=== PATIENT | female | born 1945 | race Caucasian/White ===

== ENCOUNTER → 2017-02-12 | Outpatient (CLI) | payer MEDICARE, BC ==
[2017-02-12 08:41] LABS: CH 32.7; CHCM 33.7; HCT 39.2 % (34.0-46.0); HDW 2.56; HGB 13.2 gm/dL (11.4-16.0); MCHC 33.8 g/dL (31.0-37.0); MCV 97.6 fL (80.0-100.0); Mean Platelet Volume 7.3; RBC 4.01 m/uL (3.80-5.40); RDW 14.1 % (11.5-15.5)
[2017-02-12 09:37] LABS: ALT 57 U/L (9-52); AST 50 U/L (14-36); Alkaline Phosphatase 54 U/L (38-126); Anion Gap 6 mmol/L; Blood Urea Nitrogen 22 mg/dL (7-17); Calcium 9.6 mg/dL (8.4-10.2); Carbon Dioxide 30 mmol/L (22-30); Chloride 104 mmol/L (98-107); Cholesterol 177 mg/dL (<200); Glucose 92 mg/dL (74-99); HDL Cholesterol 48 mg/dL (40-60); Non-African American GFR(MDRD) 60 (>60 ml/min/1.73 sqM); Sodium 140 mmol/L (137-145); Total Bilirubin 0.6 mg/dL (0.2-1.3); Total Protein 6.4 g/dL (6.3-8.2); Triglycerides 75 mg/dL (<150)
== END | disposition home or self-care (01) ==
LOC: LABWHC1 08:26
PROVIDERS: ATTEND Internal Medicine
DX: E87.8 Other disorders of electrolyte and fluid balance, not elsewhere classified (principal); E78.1 Pure hyperglyceridemia; R53.83 Other fatigue
CPT/HCPCS: 36415; 80053; 80061; 84443; 85027

== ENCOUNTER → 2017-07-24 | Outpatient (CLI) | payer MEDICARE, BC ==
--- NOTE | 2017-07-25 13:53 | MM ---
Reason for exam: screening (asymptomatic). Last mammogram was performed 1 year and 4 months ago. History: Patient is postmenopausal. Took estrogen for 1 year. Physical Findings: A clinical breast exam by your physician is recommended on an annual basis and results should be correlated with mammographic findings. MG 3D Screening Mammo W/Cad Bilateral CC and MLO view(s) were taken. Prior study comparison: March 15, 2016, bilateral MG 3d screening mammo w/cad. January 13, 2015, bilateral MG screening mammo w CAD. The breast tissue is heterogeneously dense. This may lower the sensitivity of mammography. No suspicious abnormality. No significant changes when compared with prior studies. ASSESSMENT: Negative, BI-RAD 1 RECOMMENDATION: Routine screening mammogram of both breasts in 1 year.
== END | disposition home or self-care (01) ==
LOC: RADMAMWWP 14:53
PROVIDERS: ATTEND Internal Medicine
DX: Z12.31 Encounter for screening mammogram for malignant neoplasm of breast (principal)
CPT/HCPCS: 77063; G0202

== ENCOUNTER → 2017-11-05 | Outpatient (CLI) | payer MEDICARE, BC ==
[2017-11-05 15:11] LABS: HCT 43.7 % (34.0-46.0); HGB 14.5 gm/dL (11.4-16.0); MCH 31.5 pg (25.0-35.0); MCHC 33.1 g/dL (31.0-37.0); MCV 95.3 fL (80.0-100.0); Mean Platelet Volume 7.2; Platelet Count 262 k/uL (150-450); RBC 4.59 m/uL (3.80-5.40); RDW 13.7 % (11.5-15.5); WBC 10.4 k/uL (3.8-10.6)
[2017-11-05 15:41] LABS: Potassium 4.3 mmol/L (3.5-5.1)
== END | disposition home or self-care (01) ==
LOC: LABPAT 14:45
PROVIDERS: ATTEND Internal Medicine Interventional Cardiology
DX: Z01.812 Encounter for preprocedural laboratory examination (principal); I25.10 Atherosclerotic heart disease of native coronary artery without angina pectoris
CPT/HCPCS: 36415; 80051; 82565; 84520; 85027

== ENCOUNTER → 2017-11-13 | Day surgery (SDC) | payer MEDICARE, BC ==
[2017-11-08 16:17] VITALS: BMI 32.5
[~2017-11-13] MED LIST: ALBUTEROL NEBULIZED 2.5 MG/3 ML INHALATION PRN; ALPRAZolam 0.25 MG TAB PO PRN; ALPRAZolam 0.5 MG TAB PO PRN; ASPIRIN 325 MG TAB PO STA; ASPIRIN 81 MG PO SCH; Acetaminophen-Codeine 300-30mg TAB PO PRN; CALCIUM CARBONATE PO SCH; HEPARIN SODIUM 1,000 UN/ML (10ML VL) ONE; IODIXANOL 320 MG/ML 100 ML INTRAARTER ONE; LEVOTHYROXINE 100 MCG TAB PO SCH; LIDOCAINE 2% INJ 20 MG/ML (20 ML MDV) ONE; LIDOCAINE 2% INJ 20 MG/ML SQ ONE; LOSARTAN-HCTZ 50-12.5 MG 1 EACH TAB PO SCH; METOPROLOL TARTRATE 25 MG TAB PO SCH; MIDAZOLAM 2 MG/2 ML VIAL IVP ONE; MIDAZOLAM 2 MG/2 ML VIAL ONE; NITROGLYCERIN 1000MCG/10ML SYRINGE INTRACORON ONE; NITROGLYCERIN SL TABS 0.4 MG TAB SUBLINGUAL PRN; NON-FORMULARY DRUG (Omeprazole [Prilosec] 40 MG) PO SCH; NON-FORMULARY DRUG (Tolterodine Tartrate [Detrol La] 4 MG) PO SCH; RX INFO: IV CONTRAST WAS GIVEN 1 EACH MISC MISCELLANE PRN; SODIUM CHLORIDE 0.9% 1,000 ML IV ONE; SODIUM CHLORIDE 0.9% 1,000 ML IV SCH; SODIUM CHLORIDE 0.9% 1,000 ML in EMPTY BAG 1 BAG IV ONE; SYMBICORT 80-4.5 MCG INHALER INHALATION PRN; VERAPAMIL 2.5 MG/ML 2 ML AMP ONE; VERAPAMIL SYRINGE (5 MG/10 ML) INTRAARTER ONE; VITAMIN D3 PO SCH; fentaNYL (PF) 50 MCG/ML 2 ML AMP IVP ONE; fentaNYL (PF) 50 MCG/ML 2 ML AMP ONE
[2017-11-13 09:15] VITALS: RESP 18
--- NOTE | 2017-11-13 14:34 | CC ---
CARDIAC CATHETERIZATION REPORT Mrs. Zuleta is a 72-year-old female with known history of coronary artery disease, status post stenting of the first obtuse marginal branch in 2010, history of hypertension, hyperlipidemia, who has been complaining of dyspnea on exertion and chest discomfort. In view of that, recommendation made regarding cardiac catheterization, the procedures, risks and complication were discussed with the patient who is in full understanding and agreement. PROCEDURE: Patient was brought to the [facility] in a fasting semi-sedated state after receiving fentanyl and Benadryl. She was draped and prepped in conventional fashion after obtaining moderate conscious semi-sedated state using Xylocaine anesthesia and Seldinger technique, a 6-Hungarian sheath was introduced in the right radial artery. Selective right and left angiography performed using a 6-Hungarian Adrian catheter. Prior to that, attempt to cannulate the coronaries with the 3.5 bend 5-Hungarian Marce catheter were unsuccessful. The right Marce catheter was used to cross the aortic valve and pressures were calculated. After obtaining images of the coronary arteries, catheter and sheaths were removed. Hemostasis was obtained with deployment of a TR band. There was no immediate complication. Patient is returned to her room in stable condition. Of note, the patient received 3500 units of intravenous heparin as well as intra-arterial verapamil. FINDINGS: 1. LEFT MAIN: This is a large-sized vessel bifurcating into left circumflex, left anterior descending artery, left main coronary artery is without any significant obstructive disease. 2. LEFT ANTERIOR DESCENDING ARTERY: This is a large-sized vessel, reaching toward the apex, tapers down distal third, giving rise to 3 obtuse marginal branches. The first one is a small in caliber, has about 70% to 80% stenosis proximally. The left anterior descending artery beyond the first diagonal branch has mild intimal disease of 20% to 30%. The rest of the vessel has no high-grade stenosis. 3. LEFT CIRCUMFLEX: This is a nondominant vessel, giving rise to 2 obtuse marginal branches. The first one is very proximal, it is the stented branch. The stent is patent. Beyond the stent, there is a tubular lesion of about 50%. The rest of the vessel has no high-grade stenosis. The second obtuse marginal branch is small caliber, in the mid segment of that branch, prior to another bifurcation,. there is a 99% stenosis. The vessel beyond that is quite small in caliber. 4. RIGHT CORONARY ARTERY: This is a large dominant vessel, bifurcating into PDA and posterolateral segment branches. The right coronary artery has mild intimal disease of 10% to 20% without any evidence of high-grade stenosis. 5. LEFT VENTRICULOGRAM: Left ventriculogram was not performed. 6. HEMODYNAMICS: There was no gradient across the aortic valve. The left ventricle end-diastolic pressure was 12 mmHg. CONCLUSION: 1. Significant disease in the small first diagonal branch and second obtuse marginal branch. 2. Mild to moderate disease in the proximal left anterior descending artery, first obtuse marginal branch and the right coronary artery. RECOMMENDATION: In view of finding anatomy, I have recommended to continue medical therapy with the aggressive risk factor modifications being initiated. Those findings and recommendation were discussed with the patient and her family who are in full understanding and agreement. Duration of the procedure is 24 minutes. MMODL / IJN: [id number] /
--- NOTE | 2017-11-13 14:34 | LTR ---
DATE OF SERVICE: 11/13/2016 RE: Nisreen Zuleta Dear Dr. Nettles: I had the pleasure to perform cardiac catheterization on Mrs. Zuleta at [facility] on November 13, 2017 and a full copy of the procedure note will be forwarded to you. In brief, she he was found to have no evidence of restenosis in the prior stented segment of the first obtuse marginal branch, but she had significant disease in a small distal second obtuse marginal branch and a first small diagonal branch. In view of the anatomy, I have recommended to continue medical therapy and depending on her progress, further recommendation will be made. Thank you again for allowing me to participate in this patient's care. Please feel free to call for any questions. Sincerely yours, MD ANAYA Patino / SPEEDY: [id number] /
[2017-11-13 16:38] VITALS: TEMP 98.2
[2017-11-13 17:29] VITALS: BP 123/68; PULSE 62
== END | disposition home or self-care (01) ==
LOC: CATHCVL 08:35
PROVIDERS: ATTEND Internal Medicine Interventional Cardiology
DX: I25.110 Atherosclerotic heart disease of native coronary artery with unstable angina pectoris (principal); I10 Essential (primary) hypertension; Z95.5 Presence of coronary angioplasty implant and graft; E78.2 Mixed hyperlipidemia; I71.4 Abdominal aortic aneurysm, without rupture; I73.9 Peripheral vascular disease, unspecified; Z79.82 Long term (current) use of aspirin; Z79.1 Long term (current) use of non-steroidal anti-inflammatories (NSAID); Z79.51 Long term (current) use of inhaled steroids; Z79.899 Other long term (current) drug therapy
CPT/HCPCS: 93458; C1894; C1769 ×2; J2001; J2250; Q9967; J3010; J1644

== ENCOUNTER → 2018-03-10 | Outpatient (CLI) | payer MEDICARE, BC ==
[2018-03-10 10:46] LABS: Basophils % (A) 1 %; Eosinophils # (A) 0.1 k/uL (0-0.7); Eosinophils % (A) 2 %; HGB 13.7 gm/dL (11.4-16.0); Lymphocytes # (A) 1.9 k/uL (1.0-4.8); Lymphocytes % (A) 36 %; MCH 30.8 pg (25.0-35.0); MCHC 32.5 g/dL (31.0-37.0); MCV 94.6 fL (80.0-100.0); Mean Platelet Volume 7.2; Monocytes # (A) 0.3 k/uL (0-1.0); Monocytes % (A) 6 %; Neutrophils # (A) 2.8 k/uL (1.3-7.7); Neutrophils % (A) 53 %; Platelet Count 194 k/uL (150-450); RBC 4.43 m/uL (3.80-5.40); RDW 14.8 % (11.5-15.5); WBC 5.3 k/uL (3.8-10.6)
[2018-03-10 11:08] LABS: Albumin 3.9 g/dL (3.5-5.0); Calcium 9.8 mg/dL (8.4-10.2); Potassium 4.1 mmol/L (3.5-5.1); Total Bilirubin 0.5 mg/dL (0.2-1.3); Total Protein 6.3 g/dL (6.3-8.2)
--- NOTE | 2018-03-10 13:26 | CT ---
CT angiogram of the abdomen HISTORY: Abdominal aortic aneurysm Helical acquisition through the abdomen following 100 cc Isovue-370 IV. Three-dimensional reconstruct ions performed on an alternate workstation. Correlation prior exam 10/27/2012 There is an infrarenal abdominal aortic aneurysm measuring 5.7 cm which is increased from previous ex am when it measured 3.1 cm. There is some luminal plaque. There is no involvement of the common iliac arteries. The aneurysm measures approximately 1.5 cm, suspect there is a single renal artery on the right, acce ssory, inferior renal artery is noted on the left, 2 renal arteries on the left. Some cortical thinning associated with the left kidney is noted. Patient is post cholecystectomy. The celiac axis, superior mesenteric artery, inferior mesenteric artery are patent. Common iliac, manufacturing engineering intern al and external iliac arteries are patent. Calcifications associated with the liver and spleen may be due to old granulomatous disease. Facet ar thropathy, degenerative disc changes are noted in the visualized spine. IMPRESSION: Infrarenal abdominal aortic aneurysm as described.
== END | disposition home or self-care (01) ==
LOC: RADCTMAIN 09:54
PROVIDERS: ATTEND Thoracic Surgery (Cardiothoracic Vascular Surgery)
DX: I71.4 Abdominal aortic aneurysm, without rupture (principal)
CPT/HCPCS: 80061; 80053; 82565; 84443; 84520; 85025; 74175; 36415; Q9967

== ENCOUNTER → 2018-04-22 | Outpatient (CLI) | payer MEDICARE, BC ==
[2018-04-22 14:29] LABS: Basophils % (A) 1 %; Eosinophils % (A) 1 %; HCT 40.7 % (34.0-46.0); HGB 12.9 gm/dL (11.4-16.0); Lymphocytes # (A) 1.5 k/uL (1.0-4.8); Lymphocytes % (A) 22 %; MCH 29.8 pg (25.0-35.0); MCHC 31.7 g/dL (31.0-37.0); MCV 93.8 fL (80.0-100.0); Mean Platelet Volume 7.4; Monocytes # (A) 0.4 k/uL (0-1.0); Monocytes % (A) 5 %; Neutrophils # (A) 4.9 k/uL (1.3-7.7); Neutrophils % (A) 71 %; Platelet Count 172 k/uL (150-450); RBC 4.34 m/uL (3.80-5.40); RDW 14.4 % (11.5-15.5); WBC 6.9 k/uL (3.8-10.6)
[2018-04-22 14:35] LABS: Appearance,Urine Clear (Clear); Bilirubin,Urine Negative (Negative); Blood,Urine Negative (Negative); Color,Urine Yellow; Glucose,Urine (UA) Negative (Negative); Ketones,Urine Negative (Negative); Leukocyte Esterase,Urine Negative (Negative); Nitrite,Urine Negative (Negative); PH, Urine 5.5 (5.0-8.0); Protein,Urine Negative (Negative); Specific Gravity,Urine 1.009 (1.001-1.035); Urobilinogen,Urine <2.0 mg/dL (<2.0)
[2018-04-22 14:44] LABS: Potassium 4.3 mmol/L (3.5-5.1)
== END | disposition home or self-care (01) ==
LOC: LABWHC1 13:23
PROVIDERS: ATTEND Surgery
DX: Z01.812 Encounter for preprocedural laboratory examination (principal); I71.4 Abdominal aortic aneurysm, without rupture
CPT/HCPCS: 36415; 80051; 81003; 82565; 84520; 85025

== ENCOUNTER 2018-04-29 07:27 | Inpatient (IN) | payer MEDICARE, BC ==
[2018-04-23 11:20] VITALS: BMI 32.8
[~2018-04-29 07:27] MED LIST changes: -ALBUTEROL NEBULIZED 2.5 MG/3 ML INHALATION PRN; -ALPRAZolam 0.25 MG TAB PO PRN; -ALPRAZolam 0.5 MG TAB PO PRN; -ASPIRIN 325 MG TAB PO STA; -ASPIRIN 81 MG PO SCH; -Acetaminophen-Codeine 300-30mg TAB PO PRN; -CALCIUM CARBONATE PO SCH; +DEXAMETHASONE SOD PHOSPHATE 10 MG/ML 1 ML VIAL IV ONE; -HEPARIN SODIUM 1,000 UN/ML (10ML VL) ONE; -IODIXANOL 320 MG/ML 100 ML INTRAARTER ONE; +LACTATED RINGERS 1,000 ML IV SCH; -LEVOTHYROXINE 100 MCG TAB PO SCH; +LIDOCAINE 1% 20 ML VIAL (10MG/ML) FOR IV START INTRADERMA PRN; -LIDOCAINE 2% INJ 20 MG/ML (20 ML MDV) ONE; -LIDOCAINE 2% INJ 20 MG/ML SQ ONE; -LOSARTAN-HCTZ 50-12.5 MG 1 EACH TAB PO SCH; -METOPROLOL TARTRATE 25 MG TAB PO SCH; +MIDAZOLAM 2 MG/2 ML VIAL IV PRN; -MIDAZOLAM 2 MG/2 ML VIAL IVP ONE; -MIDAZOLAM 2 MG/2 ML VIAL ONE; -NITROGLYCERIN 1000MCG/10ML SYRINGE INTRACORON ONE; -NITROGLYCERIN SL TABS 0.4 MG TAB SUBLINGUAL PRN; -NON-FORMULARY DRUG (Omeprazole [Prilosec] 40 MG) PO SCH; -NON-FORMULARY DRUG (Tolterodine Tartrate [Detrol La] 4 MG) PO SCH; +ONDANSETRON 4 MG/2 ML VIAL IVP ONE; -RX INFO: IV CONTRAST WAS GIVEN 1 EACH MISC MISCELLANE PRN; -SODIUM CHLORIDE 0.9% 1,000 ML IV ONE; -SODIUM CHLORIDE 0.9% 1,000 ML IV SCH; -SYMBICORT 80-4.5 MCG INHALER INHALATION PRN; -VERAPAMIL 2.5 MG/ML 2 ML AMP ONE; -VERAPAMIL SYRINGE (5 MG/10 ML) INTRAARTER ONE; -VITAMIN D3 PO SCH; +ceFAZolin IN SWFI 2 GM/20 ML SYRINGE IVP ONE; +fentaNYL (PF) 50 MCG/ML 2 ML AMP IV PRN; -fentaNYL (PF) 50 MCG/ML 2 ML AMP IVP ONE; -fentaNYL (PF) 50 MCG/ML 2 ML AMP ONE
--- NOTE | 2018-04-29 08:54 | P.GSHP ---
History of Present Illness H&P Date: 04/29/18 Chief Complaint: AAA 72-year-old female with history of abdominal aortic aneurysm presented to the office secondary to enlarged infrarenal aneurysm measuring approximate 5.[address] angiogram which demonstrated long neck and suitable aneurysm for endovascular aortic repair. She presents today for endovascular aortic repair. She denies any fevers, chills, chest pain or shortness of breath. Past Medical History Past Medical History: Asthma, Chest Pain / Angina, Eye Disorder, GERD/Reflux, Hyperlipidemia, Hypertension, Thyroid Disorder Additional Past Medical History / Comment(s): current tx for resp congestion/ cough,Hx CHEST TIGHTNESS,GLAUCOMA History of Any Multi-Drug Resistant Organisms: None Reported Past Surgical History: Cholecystectomy, Heart Catheterization With Stent Additional Past Surgical History / Comment(s): STENTX1 Past Anesthesia/Blood Transfusion Reactions: No Reported Reaction, Motion Sickness Additional Past Anesthesia/Blood Transfusion Reaction / Comment(s): no problems with prior blood transfusion Date of Last Stent Placement:: 2010 Smoking Status: Never smoker - Past Family History Mother Family Medical History: Cancer Medications and Allergies Home Medications Medication Instructions Recorded Confirmed Type Aspirin 81 mg PO HS 09/08/14 04/29/18 History Calcium Carbonate/Vitamin D3 1 tab PO DAILY 09/08/14 04/29/18 History [Calcium 600 + Vit D Tablet] Levothyroxine Sodium [Synthroid] 100 mcg PO DAILY 09/08/14 04/23/18 History Omeprazole [PriLOSEC] 40 mg PO DAILY 09/08/14 04/29/18 History Tolterodine Tartrate [Detrol LA] 4 mg PO DAILY 09/08/14 04/29/18 History Albuterol Nebulized [Ventolin 2.5 mg INHALATION Q6H PRN 11/08/17 04/29/18 History Nebulized] Budesonide/Formoterol Fumarate 1 puff INHALATION TID PRN 11/08/17 04/29/18 History [Symbicort 80-4.5 Mcg Inhaler] Losartan-Hctz 50-12.5 mg [Hyzaar 1 each PO DAILY 11/08/17 04/23/18 History 50-12.5] Metoprolol Tartrate [Lopressor] 25 mg PO DAILY 11/08/17 04/23/18 History Ibuprofen [Motrin] 200 mg PO Q6HR PRN 04/23/18 04/29/18 History Promethaz-Cod 6.25-10 mg/5 ml 5 ml PO Q6HR PRN 04/23/18 04/29/18 History [Phenergan with Codeine] Allergies Allergy/AdvReac Type Severity Reaction Status Date / Time Ioukgcp-Yyi-Jcf Reductase AdvReac MUSCLE PAIN Verified 04/23/18 10:44 Inhibitor Surgical - Exam Vital Signs Temp Pulse Resp BP Pulse Ox 98.1 F 57 L 20 150/75 97 04/29/18 08:14 04/29/18 08:14 04/29/18 08:14 04/29/18 08:14 04/29/18 08:14 Palpable DP and PT pulses bilaterally - General well developed, well nourished - Eyes PERRL, normal ocular movement - ENT normal pinna, normal nares, normal mucosa - Neck no masses, trachea midline - Respiratory normal expansion, normal respiratory effort - Cardiovascular Rhythm: regular - Abdomen Abdomen: soft, non tender - Integumentary no rash - Psychiatric oriented to time, oriented to person, oriented to place Assessment and Plan (1) AAA (abdominal aortic aneurysm) without rupture Current Visit: Yes Status: Acute Priority: High Code(s): I71.4 - ABDOMINAL AORTIC ANEURYSM, WITHOUT RUPTURE SNOMED Code(s): 65418367 Plan: EVAR today
[2018-04-29] MEDS ORDERED: SODIUM CHLORIDE 0.9% 500 ML IV ONE (09:10)
[2018-04-29] MEDS ORDERED: LACTATED RINGERS IV ONE (09:10)
[2018-04-29] MEDS ORDERED: LIDOCAINE 1% INJ 10MG/ML (20 ML MDV) SQ ONE (09:40)
[2018-04-29] MEDS ORDERED: NITROGLYCERIN-D5W PMX 50 MG in DEXTROSE/WATER 1 250ML.BAG IV SCH (09:45)
[2018-04-29] MEDS ORDERED: PROMETHAZ-COD 6.25-10 MG/5 ML 5 ML CUP PO PRN (10:57)
[2018-04-29] MEDS ORDERED: SYMBICORT 80-4.5 MCG INHALER INHALATION PRN (10:57)
[2018-04-29] MEDS ORDERED: IBUPROFEN 200 MG TAB PO PRN (10:57)
[2018-04-29] MEDS ORDERED: LACTATED RINGERS 1,000 ML IV ONE ×2 (11:10)
[2018-04-29] MEDS ORDERED: IOPAMIDOL-250 100ML BTL INTRAARTER ONE (11:13)
--- NOTE | 2018-04-29 11:40 | P.OP ---
Date of Procedure: 04/29/18 Preoperative Diagnosis: Infrarenal AAA Postoperative Diagnosis: Infrarenal AAA Procedure(s) Performed: Endovascular aortic repair with ovation iX Bilateral femoral artery access under ultrasound guidance and Perclose closure device Implants: Ovation iX 23 mm main body Ovation 12 x 120 mm contralateral limb Ovation 12 x 120 mm ipsilateral limb Anesthesia: FELICITY Surgeon: Sebas Mar Estimated Blood Loss (ml): 30 IV fluids (ml): 500 Pathology: none sent Condition: stable Disposition: PACU Indications for Procedure: 72-year-old female who presented to the office with increasing asymptomatic infrarenal abdominal aortic aneurysm measuring 5.[address] angiogram which demonstrated suitable aneurysm for endovascular aortic repair. She denies any fevers, chills, chest pain or shortness of breath. Operative Findings: Large infrarenal abdominal aortic aneurysm measuring approximately 5.7 cm Description of Procedure: After written informed consent was obtained the patient all risks benefits and complications were described patient is brought to the [facility] and laid in a supine position. The area of the groins were prepped and draped in usual sterile fashion after appropriate anesthetic was performed per the anesthesiologist. Timeout was performed in normal fashion antibiotics were administered prior to any incisions. Utilizing ultrasound bilateral common femoral arteries were visualized and shown to be patent with minimal plaque. Under ultrasound guidance the femoral arteries were accessed and in normal fashion 2 Perclose closure devices were placed in both femoral arteries. Once devices were placed and 8-Sierra Leonean sheath was placed. After placement of the 8- [place] sheath the patient was administered heparin and followed with serial a CTs for appropriate heparinization. 035 Glidewire was then placed up the right common femoral artery sheath followed by an angled glide catheter and exchanged for a stiff Lunderquist wire. 035 Glidewire was then placed in the left femoral sheath and a pigtail catheter was guided over into the L2 vertebrae space. Due to the computed tomography scan and size of the aorta a 23 mm main body device was chosen to be deployed. The 8-Sierra Leonean sheath on the right femoral artery was removed and the main body was guided over the stiff Lunderquist wire to approximately the L1-L2 vertebra level. Appropriate angles were then obtained with the fluoroscopy and an aortogram was obtained visualizing the renal arteries. First segment of the graft was then deployed by turning the first released knob quarter turn counterclockwise and steadily pulled knob attached to the wire. Once the mid crown was deployed the parallax was removed with moving the fluoroscopy. Another angiogram was obtained demonstrating good visualization of the landing zone. Pigtail catheter was then withdrawn and the main body suprarenal fixation was deployed in normal fashion. Once deployed the polymer was then placed under direct visualization of fluoroscopy. Lunderquist wire was then withdrawn within the limb of the graft to allow for good molding of the intra-aorta. Attention was then placed to gate cannulation of the contralateral limb. Utilizing an 035 Glidewire and angled glide catheter the contralateral limb was accessed and the angled glide catheter was removed and replaced with pigtail catheter to verify cannulation. The pigtail catheter spun easily without any issue and therefore confirmed cannulation. A retrograde angiogram was then obtained and measurements were obtained of the contralateral limb which measured to be 12 x 120 mm. A 12 x 120 mm contralateral limb was then placed in normal fashion after removal of the pigtail catheter after a stiff Amplatz wire was placed. 8-Sierra Leonean sheath was removed and device was placed and deployed in normal fashion. Once completed a 10 x 40 mm balloon was placed at the overlap of the contralateral limb. Attention was then placed to the full deployment of the main body after 14 minutes were allowed to pass for polymer. Nosecone was retracted after full deployment of the graft was performed by rotating the graft. The stiff Lunderquist wire was readvanced. Once the deployment system was removed attention was then placed to the aortic rings. Utilizing a Coda balloon balloon angioplasty was performed at the infrarenal aortic polymer rings to further mold the rings into the aorta. Coda balloon was removed and replaced with a pigtail catheter retrograde angiogram was then obtained to measure the internal iliac artery. A 12 x 120 mm ipsilateral limb was then chosen to be deployed and was deployed in normal fashion after removal of the existing sheath. Once completed the deployment device was removed and a 10 x 40 mm balloon was placed and balloon angioplasties were performed bilaterally at all the areas of overlap. Once completed wounds were removed and a pigtail catheter was placed for final angiogram. Upon finally gram there was no evidence of a type I or 3 endoleak there was a small late type II endoleak. All catheters were then removed guidewires were placed and sheaths were removed for deployment of the Perclose closure devices. The Perclose closure devices were then deployed in normal fashion and hemostasis was assured. The area was then cleansed and dressings were placed patient tolerated procedure well and had palpable pulses at the conclusion of the procedure. She was then sent to PACU for recovery.
[2018-04-29 12:20] LABS: Calcium 8.9 mg/dL (8.4-10.2); Potassium 3.3 mmol/L (3.5-5.1)
[2018-04-29 12:26] LABS: Basophils % (A) 1 %; Eosinophils # (A) 0.1 k/uL (0-0.7); Eosinophils % (A) 1 %; HCT 37.1 % (34.0-46.0); HGB 11.9 gm/dL (11.4-16.0); Lymphocytes # (A) 1.9 k/uL (1.0-4.8); Lymphocytes % (A) 25 %; MCH 30.1 pg (25.0-35.0); MCHC 32.1 g/dL (31.0-37.0); Mean Platelet Volume 7.3; Monocytes # (A) 0.4 k/uL (0-1.0); Monocytes % (A) 5 %; Neutrophils # (A) 5.2 k/uL (1.3-7.7); Neutrophils % (A) 67 %; Platelet Count 173 k/uL (150-450); RBC 3.95 m/uL (3.80-5.40); RDW 14.7 % (11.5-15.5); WBC 7.7 k/uL (3.8-10.6)
[2018-04-29] MEDS: LACTATED RINGERS 1,000 ML IV SCH ×2 (12:38→15:59)
[2018-04-29] MEDS: PHENYLEPHRINE 40 MG in SODIUM CHLORIDE 0.9% 250 ML IV SCH ×2 (12:39→15:47)
[2018-04-29 13:10] LABS: Glucose,Whole Blood 110 mg/dL (75-99)
[2018-04-29] MEDS: SODIUM CHLORIDE 0.9% 1,000 ML IV SCH (13:15)
[2018-04-29] MEDS ORDERED: Potassium Replacement Protocol 1 EACH MISC MISCELLANE PRN (14:49)
[2018-04-29] MEDS: POTASSIUM CHLORIDE ER 20 MEQ TAB.ER PO SCH ×2 (15:52→17:37)
[2018-04-29 19:01] VITALS: RESP 16
--- NOTE | 2018-04-29 20:23 | CONS ---
CONSULTATION Mrs. Zuleta is a 72-year-old female who has been followed for an abdominal aortic aneurysm by Vascular Surgery with gradual increase in size. She was seen by a vascular surgeon for endovascular repair, which has been performed today here at [facility]. The patient underwent endovascular aortic repair with a bilateral femoral artery access with ultrasound guidance and Perclose closure device. She is presently in the intensive care unit. I am asked to see her in regards to overall general medical concerns, which include hypertension, hyperlipidemia, mild intermittent asthma, history of hypothyroidism, on replacement, history of coronary artery disease and also underlying obesity. She also has a history of colonic polyps and an underlying anxiety disorder. HOME MEDICATIONS: 1. Detrol LA 4 mg daily for incontinence. 2. Omeprazole 40 mg daily. 3. Metoprolol tartrate 25 mg daily. 4. Losartan with hydrochlorothiazide 50/12.5 daily. 5. Synthroid 100 mcg daily. 6. Ibuprofen 200 mg q.6 hours p.r.n. 7. Calcium and vitamin D supplementation daily. 8. Symbicort 80/4.5 one inhalation t.i.d. p.r.n. 9. Aspirin 81 mg daily. 10.Ventolin nebulizer 2.5 mg 4 times a day p.r.n. She has had problems with myalgias with statins in the past. No definite history of myocardial infarction, diabetes or stroke. REVIEW OF SYSTEMS: Negative for any unusual shortness of breath, cough, fever, chills. No chest pain. No nausea or vomiting. No urinary or bowel symptomatology. No unusual leg edema. PREVIOUS SURGICAL HISTORY: 1. Cholecystectomy. 2. Previous . 3. Previous heart catheterization back in November of 2017. 4. Last colonoscopy was June 2014. FAMILY HISTORY: Positive for lung cancer, hypertension, coronary artery disease and diabetes. SOCIAL HISTORY: There is no history of previous smoking or any excessive alcohol intake. PHYSICAL EXAMINATION: She is aroused, lying in bed in the intensive care unit with peers, family at the bedside, and she appears to be alert, oriented and interacting appropriately. VITAL SIGNS: Temperature 98.7 with a pulse of 66, respirations 16, and blood pressure 122/62. Head and neck exam was unremarkable. No adenopathy or thyromegaly detected. Lungs were clear to auscultation. HEART: Regular without murmurs. Abdomen was deferred to Surgery at this time. Extremities revealed compression stockings intact. Neurologically she was alert and oriented without any focal deficits noted. LABORATORY TESTING: White count of 7.7, hemoglobin 11.9, and platelet count of 173. Sodium 141, potassium 3.3, CO2 content 26, BUN of 18, creatinine 0.83. Glucose 108. Calcium 8.9. IMPRESSION: At this point, the patient is doing well post infrarenal aortic aneurysm repair. She is presently in the intensive care unit. She does have comorbidities as stated above; also hypokalemia, which is being replaced. She is on analgesics. Her metoprolol has been re-added along with thyroid replacement therapy, oxybutynin. Protonix has been added. At this point, gradual advancement as per Surgery. I will follow along with them. MMODL / IJN: [id number] /
[2018-04-29] MEDS: ALBUTEROL NEBULIZED 2.5 MG/3 ML INHALATION PRN (20:26)
[2018-04-29] MEDS ORDERED: ASPIRIN 81 MG PO SCH (21:00)
[2018-04-29] MEDS: HYDROcodone/APAP 5-325MG 1 EACH TAB PO PRN (23:38)
[2018-04-30] MEDS: PHENYLEPHRINE 40 MG in SODIUM CHLORIDE 0.9% 250 ML IV SCH (04:39)
[2018-04-30 04:59] LABS: Potassium 4.3 mmol/L (3.5-5.1)
[2018-04-30] MEDS ORDERED: LEVOTHYROXINE 100 MCG TAB PO SCH (06:30)
[2018-04-30] MEDS: LACTATED RINGERS 1,000 ML IV SCH (06:46)
--- NOTE | 2018-04-30 08:27 | P.PN ---
Progress Note - Text Of the patient is a 72-year-old female who yesterday underwent endovascular aortic repair for a infrarenal AAA. She is presently in the intensive care unit. She is sitting up in bed alert and oriented. Denies any chest pain or unusual shortness of breath. No nausea or vomiting. Other past medical history is positive for hypertension, mild controlled asthma , and hypothyroidism on replacement therapy. The patient has not been able to tolerate statins in the past. This morning her vital signs will temperature of 99.1 at 4:00 in the morning. Pulse is 65 and regular. Blood pressure 116/51 and she is 97% saturated. Head and neck exam unremarkable. Lungs are clear to auscultation. Heart tones were regular without murmurs appreciated Abdomen no marked tenderness. Extremities reveal compression appliance is intact with minimal edema. Neurologically she is alert and oriented. Cranial nerves intact and no focal weakness noted. Laboratory Sodium is 138 with potassium 4.3 and a BUN of 11 with creatinine 0.8 given her GFR of 75. Calcium was 9.0. Blood sugar 97. Impressions and plans Patient overall appears to be doing well post surgery this morning. Continue to progress with diet and activity. Discussed with patient and nursing staff this morning at bedside.
[2018-04-30] MEDS: ALBUTEROL NEBULIZED 2.5 MG/3 ML INHALATION PRN (08:40)
[2018-04-30 08:53] VITALS: TEMP 99
[2018-04-30] MEDS ORDERED: LOSARTAN-HCTZ 50-12.5 MG 1 EACH TAB PO SCH (09:00)
[2018-04-30] MEDS ORDERED: METOPROLOL TARTRATE 25 MG TAB PO SCH (09:00)
[2018-04-30] MEDS ORDERED: OXYBUTYNIN XL 5 MG TAB.ER.24 PO SCH (09:00)
[2018-04-30] MEDS ORDERED: CALCIUM CARB-VIT D 500MG-200UN 1 EACH TAB PO SCH (09:00)
[2018-04-30] MEDS ORDERED: PANTOPRAZOLE 40 MG TABLET PO SCH (09:00)
[2018-04-30] MEDS: HYDROcodone/APAP 5-325MG 1 EACH TAB PO PRN (10:13)
[2018-04-30 10:57] LABS: Basophils % (A) 0 %; Eosinophils # (A) 0.1 k/uL (0-0.7); Eosinophils % (A) 1 %; HCT 35.7 % (34.0-46.0); HGB 11.3 gm/dL (11.4-16.0); Lymphocytes # (A) 0.9 k/uL (1.0-4.8); Lymphocytes % (A) 11 %; MCHC 31.6 g/dL (31.0-37.0); MCV 94.8 fL (80.0-100.0); Mean Platelet Volume 7.2; Monocytes # (A) 0.6 k/uL (0-1.0); Monocytes % (A) 8 %; Neutrophils # (A) 6.1 k/uL (1.3-7.7); Neutrophils % (A) 79 %; Platelet Count 161 k/uL (150-450); RBC 3.77 m/uL (3.80-5.40); RDW 14.6 % (11.5-15.5); WBC 7.8 k/uL (3.8-10.6)
--- NOTE | 2018-04-30 12:40 | IR ---
EXAMINATION TYPE: IR stent intravas non coronary DATE OF EXAM: 04/29/2018 COMPARISON: NONE HISTORY: Peripheral vascular occlusive disease. Fluoroscopy was provided to the referring clinician. .
[2018-04-30] MEDS: SODIUM CHLORIDE 0.9% 1,000 ML IV SCH ×2 (12:53)
--- NOTE | 2018-04-30 13:45 | P.PN ---
Subjective Progress Note Date: 04/30/18 Principal diagnosis: Abdominal aortic aneurysm status post aortic stent graft Patient is feeling quite well. She has no specific complaints. She is requiring no new medication. Her Martínez is out and she is ambulating. Objective - Vital Signs Vital signs: Vital Signs Temp 99 F 04/30/18 08:52 Pulse 65 04/30/18 11:00 Resp 16 04/30/18 04:00 BP 142/69 04/30/18 01:00 Pulse Ox 92 L 04/30/18 11:00 Intake & Output 04/29/18 04/30/18 04/30/18 18:59 06:59 18:59 Intake Total 1771 927 602 Output Total 1650 755 350 Balance 121 172 252 Weight 70 kg 75.4 kg Intake: IV 1071 927 352 Lactated Ringers 1,000 ml 180 20 @ 20 mls/hr IV .Q24H ABEL Rx#:[id number] Sodium Chloride 0.9% 1, 720 320 000 ml @ 80 mls/hr IV . [id number] ABEL Rx#:[id number] arterial line 21 27 12 Intake, IV Titration 700 Amount Lactated Ringers 1,000 ml 140 @ 20 mls/hr IV .Q24H ABEL Rx#:[id number] Sodium Chloride 0.9% 1, 560 000 ml @ 80 mls/hr IV . [id number] ABEL Rx#:[id number] Oral 250 Output: Urine 1650 755 350 Other: Voiding Method Indwelling Catheter Indwelling Catheter Indwelling Catheter # Voids 1 ABP, PAP, CO, CI - Last Documented Arterial Blood Pressure 144/56 - Exam Groins are soft without evidence of swelling or induration. Good lower extremity perfusion. Hemoglobin stable at over 11. - Labs CBC & Chem 7: 04/30/18 10:30 04/30/18 04:30 Labs: Abnormal Lab Results - Last 24 Hours (Table) 04/30/18 04/30/18 Range/Units 04:30 10:30 RBC 3.77 L (3.80-5.40) m/uL Hgb 11.3 L (11.4-16.0) gm/dL Lymphocytes # 0.9 L (1.0-4.8) k/uL Chloride 109 H (98-107) mmol/L Assessment and Plan (1) AAA (abdominal aortic aneurysm) without rupture Current Visit: Yes Status: Acute Priority: High Code(s): I71.4 - ABDOMINAL AORTIC ANEURYSM, WITHOUT RUPTURE SNOMED Code(s): 11773821 Plan: Patient is doing well status post aortic stent graft. We gave her thorough discharge instructions. She will resume home medications. She will see Dr. Mar in a week.
[2018-04-30 15:05] VITALS: BP 115/73; PULSE 65
== END 2018-04-30 15:22 | disposition home or self-care (01) | DRG 269 ==
LOC: 2ORMAIN 07:27 → 6ICU 11:37
PROVIDERS: ADMIT Surgery; ATTEND Surgery
PROC: 04V03EZ Restriction of Abdominal Aorta with Branched or Fenestrated Intraluminal Device, One or Two Arteries, Percutaneous Approach (ICD-10-PCS; principal; 2018-04-29 09:03)
DX: I71.4 Abdominal aortic aneurysm, without rupture (principal); E03.9 Hypothyroidism, unspecified; E78.5 Hyperlipidemia, unspecified; E87.6 Hypokalemia; H40.9 Unspecified glaucoma; I10 Essential (primary) hypertension; I25.10 Atherosclerotic heart disease of native coronary artery without angina pectoris; J45.909 Unspecified asthma, uncomplicated; K21.9 Gastro-esophageal reflux disease without esophagitis; R32 Unspecified urinary incontinence; Z79.82 Long term (current) use of aspirin; Z79.899 Other long term (current) drug therapy; Z80.1 Family history of malignant neoplasm of trachea, bronchus and lung; Z82.49 Family history of ischemic heart disease and other diseases of the circulatory system; Z83.3 Family history of diabetes mellitus; Z86.010 Personal history of colon polyps; Z90.49 Acquired absence of other specified parts of digestive tract; Z95.5 Presence of coronary angioplasty implant and graft; Z79.890 Hormone replacement therapy; Z79.1 Long term (current) use of non-steroidal anti-inflammatories (NSAID); Z88.8 Allergy status to other drugs, medicaments and biological substances
CPT/HCPCS: 34705; 80048; 84132; 85025; 85347; 86850; 86900; 86901; 94640

== ENCOUNTER → 2018-06-10 | Outpatient (CLI) | payer MEDICARE, BC ==
--- NOTE | 2018-06-10 16:59 | CT ---
EXAMINATION TYPE: CT angio abdomen pelvis DATE OF EXAM: 06/10/2018 COMPARISON: 03/10/2018 HISTORY: 72 year-old female in endoleak, abdominal stent TECHNIQUE: Contiguous axial scanning of the abdomen and pelvis before and after administration of 100 ml Isovue-370 IV contrast. Delayed images were also performed with coronal and sagittal MIP reconst ructions performed. 3-D reconstructions generated on a dedicated independent workstation. CT DLP: 1214.5 mGycm Automated exposure control for dose reduction was used. FINDINGS: Heart is mildly enlarged without pericardial effusion. Coronary vessel calcifications are present in remarkable for coronary artery disease. Mildly ectatic ascending aorta at 3.5 cm. Strandy areas of at electasis in the visualized lower lungs without pleural effusion. Few scattered calcified granulomas in the liver. Cholecystectomy clips. Stable calcifications along the right-sided hepatorenal junction measuring 2.0 cm could represent exo phytic hepatic calcifications or an exophytic calcified lesion from the upper pole of the right kidne y. Adrenal glands, right kidney, and pancreas show no gross abnormality. Stable nonspecific 1 cm hypodense lesion within the spleen could represent a cyst. Couple calcified g ranulomas in the spleen are also noted. Focal cortical volume loss and wedge-shaped hypodensity in the upper to mid left kidney could represe nt area of renal infarction, new or larger from 03/10/2018. Interval aortobiiliac endovascular stent graft repair extending from the level of the celiac axis. Beau th celiac axis and SMA are patent as are the bilateral renal arteries. The endovascular stent graft repair appears modular with a separate component beginning at the level of the infrarenal AAA. [place] sac currently measures 5.7 x 5.1 cm versus 5.6 x 4.9 cm on 03/10/2018. Th ere is evidence of endoleak arising along the superior margin of the [place] sac identified on the del ayed images. Refer to axial series 601 images 45 through 50 and sagittal series 603 images 91 and 92 for some repr esentative images. There seems to be a radiolucent component to the stent graft approximately 1.6 cm long segment at the upper portion of the [place] sac, refer to series 603 image 92. No dilated small bowel, free fluid, or free air. A few scattered prominent iliac chain lymph nodes probably reactive/post inflammatory. Bladder partially distended. Multiple pelvic phleboliths. Uterus is present. No abnormal fluid collec tion in the pelvis. Bones: Degenerative changes at the hips. Degenerative changes of the SI joints and within the mid to lower lumbar spine. Endplate spondylosis lower thoracic spine. IMPRESSION 1. INTERVAL ENDOVASCULAR AORTOBIILIAC STENT GRAFT EXTENDING FROM THE LEVEL OF THE CELIAC AXIS DOWN. 2. THE PATIENT'S INFRARENAL AAA/[place] SAC IS STABLE TO SLIGHTLY LARGER MEASURING 5.7 X 5.1 CM VERSUS 5.6 X 4.9 CM, PREVIOUSLY. 3. EXAM POSITIVE FOR ENDOLEAK ALONG THE SUPERIOR PORTION OF THE [place] SAC WHERE THERE SEEMS TO BE 2 MODULAR COMPONENTS COMING TOGETHER. THERE IS A 1.6 CM LONG RADIOLUCENT SEGMENT OF THE GRAFT AT THIS L EVEL WELL. FINDINGS SUSPECTED TO REPRESENT A TYPE IIIA ENDOLEAK. TYPE II ENDOLEAK IS NOT ENTIRELY EXCLUDED GIVEN THE APPEARANCE OF THE LEAK ON DELAYED IMAGES. 4. POSSIBLE SMALL AREA OF INTERVAL CORTICAL INFARCT UPPER TO MIDPOLE LEFT KIDNEY.
== END | disposition home or self-care (01) ==
LOC: RADCTMAIN 13:00
PROVIDERS: ATTEND Surgery
DX: T82.898A Other specified complication of vascular prosthetic devices, implants and grafts, initial encounter (principal)
CPT/HCPCS: 82565; 84520; 36415; 74174; Q9967

== ENCOUNTER → 2018-07-28 | Outpatient (CLI) | payer MEDICARE, BC ==
--- NOTE | 2018-07-29 13:23 | MM ---
Reason for exam: screening (asymptomatic). Last mammogram was performed 1 year ago. History: Patient is postmenopausal. Took estrogen for 1 year. Physical Findings: A clinical breast exam by your physician is recommended on an annual basis and results should be correlated with mammographic findings. MG 3D Screening Mammo W/Cad Bilateral CC and MLO view(s) were taken. Prior study comparison: July 24, 2017, bilateral MG 3d screening mammo w/cad. March 15, 2016, bilateral MG 3d screening mammo w/cad. The breast tissue is heterogeneously dense. This may lower the sensitivity of mammography. No suspicious abnormality. No significant changes when compared with prior studies. ASSESSMENT: Negative, BI-RAD 1 RECOMMENDATION: Routine screening mammogram of both breasts in 1 year.
== END | disposition home or self-care (01) ==
LOC: RADMAMWWP 10:02
PROVIDERS: ATTEND Internal Medicine
DX: Z12.31 Encounter for screening mammogram for malignant neoplasm of breast (principal)
CPT/HCPCS: 77063; 77067

== ENCOUNTER → 2018-09-25 | Outpatient (CLI) | payer MEDICARE ==
[2018-09-25 08:28] LABS: Albumin 3.9 g/dL (3.5-5.0); Calcium 9.6 mg/dL (8.4-10.2); Potassium 4.6 mmol/L (3.5-5.1); Total Bilirubin 0.9 mg/dL (0.2-1.3); Total Protein 6.6 g/dL (6.3-8.2)
--- NOTE | 2018-09-25 09:48 | CT ---
EXAMINATION TYPE: CT angio abdomen pelvis DATE OF EXAM: 09/25/2018 COMPARISON: 06/10/2018 HISTORY: 73-year-old female evaluate for endoleak Complication of vascular prosthetic device-2mm cuts TECHNIQUE: Contiguous axial scanning of the abdomen and pelvis before and after administration of 80 ml Isovue-370 IV contrast. Delayed images through the stent graft and coronal/sagittal MIP reconstru ctions performed. 3-D reconstructions generated on a dedicated independent workstation. CT DLP: 781.9 mGycm Automated exposure control for dose reduction was used. FINDINGS: Some tree-in-bud nodularity is demonstrated at the right base, refer to axial images to through 5. Pa tchy posterior left basilar density could represent prominent dependent atelectasis. Heart remains mildly enlarged. No pericardial effusion. Small hiatal hernia. Calcified granuloma redemonstrated right hepatic lobe as well as a tiny 2 mm cystic centimeter hypode nsity posterior right liver lobe. Cholecystectomy clips. Portal venous system is patent. Mild prominence of the bile duct likely due to postcholecystectomy status. Stable calcifications along the right-sided hepatorenal junction measuring 2.0 cm. The adrenal glands , right kidney, and pancreas show no gross abnormality. Stable 9 mm hypodense lesion posterior left k idney and a couple calcified granulomas in the spleen. There is differential enhancement of the lower pole of the left kidney which in retrospect was presen t previously as well likely due to some variant vascular supply. No progressive volume loss in the lo wer pole of the left kidney since prior exam. Hypodensity measuring 2.0 x 0.8 cm lateral upper to mid left kidney probably represents a cyst. Small focal cortical defect medial upper pole left kidney is unchanged. Redemonstrated aortobiiliac endovascular stent graft extending from the celiac axis to the distal asp ects of the common iliac arteries. Redemonstrated short segment radiolucent component of the stent gr aft along the superior aspect of the infrarenal [place] sac. [place] sac currently measures 5.7 x 4.7 c m versus 5.7 x 5.1 cm, previously. There is redemonstrated endoleak along the superior aspect of the [place] sac in the region of the rad iolucent segment. Endoleak appears to extend nearly circumferentially around, refer to series 11 imag es 49 through 52 for some compliance representative images. No dilated small bowel, free fluid, or free air. No mesenteric or retroperitoneal lymphadenopathy. Stable calcification lower left omental region is nonspecific. Scattered mild to moderate stool burde n. No pericolonic inflammation. A few prominent iliac chain lymph nodes are redemonstrated measuring up to 7 mm along the right commo n iliac chain versus 8 mm, previously and stable 1 cm left external iliac chain lymph nodes suggestin g a benign inflammatory etiology. No progressive lymphadenopathy. Bladder urine distended. Uterus is visualized. Ovaries not well seen, probably small. No abnormal flu id collection the pelvis. Pelvic phleboliths. Bones: Degenerative changes at the hips, SI joints, and lower lumbar spine. Endplate spondylosis visu alized lower thoracic spine. Grade 1 anterolisthesis L4-L5. IMPRESSION: 1. REDEMONSTRATED AORTOBIILIAC ENDOVASCULAR STENT GRAFT EXTENDING FROM THE CELIAC AXIS DOWN. ALONG TH E SUPERIOR PORTION OF THE [place] SAC, THE SHORT RADIOLUCENT SEGMENT OF THE STENT GRAFT IS REDEMONSTRA ERIKA. 2. THE INFRARENAL [place] SAC CURRENTLY MEASURES 5.7 X 4.7 CM (VERSUS 5.7 X 5.1 CM, PREVIOUSLY), STABL E TO SLIGHTLY SMALLER THOUGH THERE IS PERSISTENT ENDOLEAK ARISING FROM THE SUPERIOR PORTION OF THE NA TIVE SAC (TYPE IIIA VERSUS TYPE II MENTIONED PREVIOUSLY). 3. DIFFERENTIAL ENHANCEMENT TO THE LOWER POLE OF THE LEFT KIDNEY WAS PRESENT ON THE PRIOR [facility]AM [facility] AND PROBABLY IS A CONSEQUENCE OF VARIANT VASCULAR SUPPLY. NO ATROPHY COMPARED TO THE PRIOR EXAM TO SUGGEST VASCULAR DISRUPTION TO THE LEFT LOWER POLE. 4. SOME TREE-IN-BUD NODULARITY AT THE RIGHT BASE. CORRELATE FOR POSSIBLE ETIOLOGIES INCLUDING BRONCHI OLITIS OR MILD ASPIRATION. PATCHY LEFT BASILAR DENSITY PROBABLY REPRESENTS PROMINENT ATELECTASIS.
== END | disposition home or self-care (01) ==
LOC: RADCTMAIN 07:40
PROVIDERS: ATTEND Surgery
DX: T82.898A Other specified complication of vascular prosthetic devices, implants and grafts, initial encounter (principal); J98.4 Other disorders of lung
CPT/HCPCS: 80061; 80053; 36415; 74174; Q9967

== ENCOUNTER → 2019-01-08 | Outpatient (CLI) | payer MEDICARE ==
--- NOTE | 2019-01-08 08:49 | US ---
EXAMINATION TYPE: US abdomen complete DATE OF EXAM: 01/08/2019 COMPARISON: CT 2019 CLINICAL HISTORY: R52 pain. History choleysectomy, aorta repair 05/2018 large body habitus , pt unable to hold breath , limited visuality EXAM MEASUREMENTS: Liver Length: 11.5 cm Gallbladder Wall: Surgically absent CBD: 0.2 cm Spleen: 8.1 cm Right Kidney: 7.2 x 2.8 x 3.4 cm Left Kidney: 7.6 x 3.2 x 3.6 cm Pancreas: Obscured by bowel gas, portions seen wnl Liver: Obscured by overlying bowel gas Gallbladder: Surgically absent Evidence for sonographic Sesay's sign: No CBD: wnl Spleen: wnl Right Kidney: Obscured by overlying bowel gas Left Kidney: Obscured by overlying bowel gas, heterogeneity of the cortex Upper IVC: wnl Abd Aorta: wnl , distal aorta graph note, flow normal in aorta . The right kidney is obscured by bowel gas. Left kidney demonstrates cortical thinning and is also s lightly obscured by bowel gas. IMPRESSION: 1. 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 Subsequent left cortical renal thinning is seen. Right kidney is obs cured by bowel gas. 2. Surgically repaired distal abdominal aortic aneurysm with vascular endograft present and patency o f the central lumen. 3. Pancreas and liver are obscured by overlying bowel gas.
== END ==
LOC: RADUSWWP 07:27
PROVIDERS: ATTEND Internal Medicine
DX: I47.1 Supraventricular tachycardia (principal); R93.422 Abnormal radiologic findings on diagnostic imaging of left kidney
CPT/HCPCS: 76700

== ENCOUNTER 2019-06-29 10:53 | Emergency (ER) | payer MEDICARE ==
[2019-06-29 11:02] VITALS: TEMP 98.2
[2019-06-29] MEDS ORDERED: NITROGLYCERIN OINT 1 INCH/GM PACKET TOPICAL STA (11:38)
--- NOTE | 2019-06-29 11:47 | ED ---
General Adult HPI - General Chief complaint: Chest Pain Stated complaint: right-side abd pain Time Seen by Provider: 06/29/19 11:00 Source: patient, RN notes reviewed Mode of arrival: wheelchair Limitations: no limitations - History of Present Illness Initial comments: This is a 74-year-old female presents emergency department with past medical history significant for coronary artery stent. Patient comes in today stating that she has had some electrical-like feeling on the right breast. Patient states the last 2-3 seconds and is gone. Patient states it usually goes away for 10-20 minutes and then occurs again. Patient denies any difficulty remington athing or shortness of breath per patient states this feeling is not at all like her feeling she had prior to getting a stent. Patient denies any diaphoretic episodes. Patient denies any nausea. Patient denies any abdominal pain. Patient states currently is not occurring. Patient denies any palpitations. Patient denies any recent fever chills or cough. Patient denies headache. Patient denies numbness weakness. Patient denies lightheadedness dizziness or near syncopal episode. Patient denies any swelling to legs or calf tenderness. - Related Data Home Medications Medication Instructions Recorded Confirmed Aspirin 81 mg PO HS 09/08/14 06/29/19 Calcium Carbonate/Vitamin D3 1 tab PO DAILY 09/08/14 06/29/19 [Calcium 600-Vit D3 400 Tablet] Levothyroxine Sodium [Synthroid] 100 mcg PO DAILY 09/08/14 06/29/19 Tolterodine Tartrate [Detrol LA] 4 mg PO DAILY 09/08/14 06/29/19 Losartan-Hctz 50-12.5 mg [Hyzaar 1 tab PO DAILY 11/08/17 06/29/19 50-12.5] Metoprolol Tartrate [Lopressor] 25 mg PO DAILY 11/08/17 06/29/19 ALPRAZolam [Xanax] 0.25 mg PO BID PRN 06/29/19 06/29/19 Chlorthalidone [Hygroton] 25 mg PO DAILY 06/29/19 06/29/19 Ezetimibe [Zetia] 5 mg PO DAILY 06/29/19 06/29/19 Ipratropium-Albuterol Nebulize 3 ml INHALATION RT-Q4H PRN 06/29/19 06/29/19 [Duoneb 0.5 mg-3 mg/3 ml Soln] Montelukast [Singulair] 10 mg PO DAILY 06/29/19 06/29/19 Pantoprazole [Protonix] 40 mg PO BID 06/29/19 06/29/19 Allergies Allergy/AdvReac Type Severity Reaction Status Date / Time Mthdzhd-Aun-Hbe Reductase AdvReac MUSCLE PAIN Verified 06/29/19 12:14 Inhibitor Review of Systems ROS Statement: Those systems with pertinent positive or pertinent negative responses have been documented in the HPI. ROS Other: All systems not noted in ROS Statement are negative. Past Medical History Past Medical History: Asthma, Chest Pain / Angina, Eye Disorder, GERD/Reflux, Hyperlipidemia, Hypertension, Thyroid Disorder Additional Past Medical History / Comment(s): CHEST TIGHTNESS, PAST HX OF HYPERLIPIDEMIA, HX OF GLAUCOMA, NOT CURRENTLY USING EYE DROPS History of Any Multi-Drug Resistant Organisms: None Reported Past Surgical History: Cholecystectomy, Heart Catheterization With Stent Additional Past Surgical History / Comment(s): [id number] Past Anesthesia/Blood Transfusion Reactions: No Reported Reaction Additional Past Anesthesia/Blood Transfusion Reaction / Comment(s): no problems with prior blood transfusion Date of Last Stent Placement:: 2010 Past Psychological History: No Psychological Hx Reported Smoking Status: Never smoker Past Alcohol Use History: Occasional Past Drug Use History: None Reported - Past Family History Mother Family Medical History: Cancer General Exam - General Exam Comments Initial Comments: GENERAL: Patient is well-developed and well-nourished. Patient is nontoxic and well- hydrated and is in no acute distress. ENT: Neck is soft and supple. No significant lymphadenopathy is noted. Oropharynx is clear. Moist mucous membranes. Neck has full range of motion without eliciting any pain. EYES: The sclera were anicteric and conjunctiva were pink and moist. Extraocular movements were intact and pupils were equal round and reactive to light. Eye lids were unremarkable. PULMONARY: Unlabored respirations. Good breath sounds bilaterally. No audible rales rhonchi or wheezing was noted. CARDIOVASCULAR: There is a regular rate and rhythm without any murmurs gallops or rubs. ABDOMEN: Soft and nontender with normal bowel sounds. No palpable organomegaly was noted. There is no palpable pulsatile mass. SKIN: Skin is clear with no lesions or rashes and otherwise unremarkable. NEUROLOGIC: Patient is alert and oriented x3. Cranial nerves II through XII are grossly intact. Motor and sensory are also intact. Normal speech, volume and content. Symmetrical smile. MUSCULOSKELETAL: Normal extremities with adequate strength and full range of motion. No lower extremity swelling or edema. No calf tenderness. LYMPHATICS: No significant lymphadenopathy is noted PSYCHIATRIC: Normal psychiatric evaluation. Limitations: no limitations Course Vital Signs 06/29/19 06/29/19 06/29/19 10:58 12:45 12:48 Temperature 98.2 F Pulse Rate 66 61 Respiratory 17 18 Rate Blood Pressure 164/82 153/84 153/84 O2 Sat by Pulse 98 98 98 Oximetry 06/29/19 12:52 Temperature Pulse Rate Respiratory 18 Rate Blood Pressure O2 Sat by Pulse Oximetry Medical Decision Making - Medical Decision Making EKG shows normal sinus rhythm at 64 bpm VT interval 130 QRS is 76 QT interval 422 QTC is 435. Patient's EKG shows no ST segment elevation or depression or patient's T-wave inversions in V1 and V2. Chest x-ray shows no acute abnormality. Patient continued to have 2-3 second episodes while in the emergency department and at no time did they show up on the monitor all. Patient is currently chest pain-free. Patient states she'll follow-up with her primary doctor and her vamp throater. Patient was given a shot of Toradol while in the emergency department - Lab Data Result diagrams: 06/29/19 11:45 06/29/19 11:45 Lab Results 06/29/19 06/29/19 06/29/19 Range/Units 11:45 11:45 11:45 WBC 8.2 (3.8-10.6) k/uL RBC 4.61 (3.80-5.40) m/uL Hgb 14.9 (11.4-16.0) gm/dL Hct 44.5 (34.0-46.0) % MCV 96.5 (80.0-100.0) fL MCH 32.2 (25.0-35.0) pg MCHC 33.4 (31.0-37.0) g/dL RDW 13.8 (11.5-15.5) % Plt Count 229 (150-450) k/uL Neutrophils % 72 % Lymphocytes % 19 % Monocytes % 5 % Eosinophils % 1 % Basophils % 1 % Neutrophils # 5.9 (1.3-7.7) k/uL Lymphocytes # 1.6 (1.0-4.8) k/uL Monocytes # 0.4 (0-1.0) k/uL Eosinophils # 0.1 (0-0.7) k/uL Basophils # 0.1 (0-0.2) k/uL PT 10.1 (9.0-12.0) sec INR 0.9 (<1.2) APTT 23.0 (22.0-30.0) sec Sodium 142 (137-145) mmol/L Potassium 3.8 (3.5-5.1) mmol/L Chloride 103 (98-107) mmol/L Carbon Dioxide 29 (22-30) mmol/L Anion Gap 10 mmol/L BUN 25 H (7-17) mg/dL Creatinine 1.07 H (0.52-1.04) mg/dL Est GFR (CKD-EPI)AfAm 60 (>60 ml/min/1.73 sqM) Est GFR (CKD-EPI)NonAf 52 (>60 ml/min/1.73 sqM) Glucose 107 H (74-99) mg/dL Calcium 10.4 H (8.4-10.2) mg/dL Magnesium 2.1 (1.6-2.3) mg/dL Total Bilirubin 0.6 (0.2-1.3) mg/dL AST 43 H (14-36) U/L ALT 34 (9-52) U/L Alkaline Phosphatase 65 (38-126) U/L Troponin I (0.000-0.034) ng/mL Total Protein 7.6 (6.3-8.2) g/dL Albumin 4.5 (3.5-5.0) g/dL 06/29/19 Range/Units 11:45 WBC (3.8-10.6) k/uL RBC (3.80-5.40) m/uL Hgb (11.4-16.0) gm/dL Hct (34.0-46.0) % MCV (80.0-100.0) fL MCH (25.0-35.0) pg MCHC (31.0-37.0) g/dL RDW (11.5-15.5) % Plt Count (150-450) k/uL Neutrophils % % Lymphocytes % % Monocytes % % Eosinophils % % Basophils % % Neutrophils # (1.3-7.7) k/uL Lymphocytes # (1.0-4.8) k/uL Monocytes # (0-1.0) k/uL Eosinophils # (0-0.7) k/uL Basophils # (0-0.2) k/uL PT (9.0-12.0) sec INR (<1.2) APTT (22.0-30.0) sec Sodium (137-145) mmol/L Potassium (3.5-5.1) mmol/L Chloride (98-107) mmol/L Carbon Dioxide (22-30) mmol/L Anion Gap mmol/L BUN (7-17) mg/dL Creatinine (0.52-1.04) mg/dL Est GFR (CKD-EPI)AfAm (>60 ml/min/1.73 sqM) Est GFR (CKD-EPI)NonAf (>60 ml/min/1.73 sqM) Glucose (74-99) mg/dL Calcium (8.4-10.2) mg/dL Magnesium (1.6-2.3) mg/dL Total Bilirubin (0.2-1.3) mg/dL AST (14-36) U/L ALT (9-52) U/L Alkaline Phosphatase (38-126) U/L Troponin I <0.012 (0.000-0.034) ng/mL Total Protein (6.3-8.2) g/dL Albumin (3.5-5.0) g/dL Disposition Clinical Impression: Atypical chest pain Disposition: HOME SELF-CARE Condition: Good Instructions (If sedation given, give patient instructions): Chest Pain (ED) Is patient prescribed a controlled substance at d/c from ED?: No Referrals: None,Stated [Primary Care Provider] - 1-2 days Time of Disposition: 13:43
[2019-06-29] MEDS: ASPIRIN 81 MG PO STA (11:53)
[2019-06-29 12:07] LABS: Basophils # (A) 0.1 k/uL (0-0.2); Basophils % (A) 1 %; Eosinophils # (A) 0.1 k/uL (0-0.7); Eosinophils % (A) 1 %; HCT 44.5 % (34.0-46.0); HGB 14.9 gm/dL (11.4-16.0); Lymphocytes # (A) 1.6 k/uL (1.0-4.8); Lymphocytes % (A) 19 %; MCH 32.2 pg (25.0-35.0); MCHC 33.4 g/dL (31.0-37.0); MCV 96.5 fL (80.0-100.0); Mean Platelet Volume 6.3; Monocytes # (A) 0.4 k/uL (0-1.0); Monocytes % (A) 5 %; Neutrophils # (A) 5.9 k/uL (1.3-7.7); Neutrophils % (A) 72 %; Platelet Count 229 k/uL (150-450); RBC 4.61 m/uL (3.80-5.40); RDW 13.8 % (11.5-15.5); WBC 8.2 k/uL (3.8-10.6)
[2019-06-29 12:11] LABS: Albumin 4.5 g/dL (3.5-5.0); Calcium 10.4 mg/dL (8.4-10.2); Magnesium 2.1 mg/dL (1.6-2.3); Potassium 3.8 mmol/L (3.5-5.1); Total Bilirubin 0.6 mg/dL (0.2-1.3); Total Protein 7.6 g/dL (6.3-8.2)
--- NOTE | 2019-06-29 12:17 | XR ---
EXAMINATION TYPE: XR chest 2V DATE OF EXAM: 06/29/2019 COMPARISON: 10/04/2017 HISTORY: 74-year-old female with chest pain TECHNIQUE: PA and lateral views FINDINGS: Heart upper limits of normal in size. Aorta and pulmonary vasculature within normal limits. Mild inte rstitial prominence is unchanged. No consolidation or pleural effusion. IMPRESSION: Chronic changes without acute cardiopulmonary process.
[2019-06-29 12:18] LABS: INR 0.9 (<1.2); Prothrombin Time 10.1 sec (9.0-12.0)
[2019-06-29] MEDS ORDERED: KETOROLAC 60 MG/2 ML VIAL IVP STA (13:39)
[2019-06-29 14:13] VITALS: BP 141/78; PULSE 60; RESP 11
== END 2019-06-29 14:21 | disposition home or self-care (01) ==
LOC: EC 10:53
DX: R07.89 Other chest pain (principal); J45.909 Unspecified asthma, uncomplicated; I20.9 Angina pectoris, unspecified; K21.9 Gastro-esophageal reflux disease without esophagitis; E78.5 Hyperlipidemia, unspecified; I10 Essential (primary) hypertension; E07.9 Disorder of thyroid, unspecified; Z88.8 Allergy status to other drugs, medicaments and biological substances; Z79.82 Long term (current) use of aspirin; Z79.890 Hormone replacement therapy; Z79.899 Other long term (current) drug therapy; Z95.5 Presence of coronary angioplasty implant and graft
CPT/HCPCS: 36415; 93005; 80053; 83735; 84484; 85025; 85610; 85730; 71046; 99285; 96374; J1885

== ENCOUNTER → 2019-07-31 | Outpatient (CLI) | payer MEDICARE ==
--- NOTE | 2019-07-31 14:03 | BD ---
EXAMINATION TYPE: Axial Bone Density DATE OF EXAM: 07/31/2019 COMPARISON: NONE CLINICAL HISTORY: Height: 4 FT 10 1/2 IN Weight: 158 FRAX RISK QUESTIONS: History of Fracture in Adulthood: YES Secondary Osteoporosis: RISK FACTORS HISTORY OF: Active: YES Postmenopausal woman: AGE 55 ELZA Take estrogen and/or progesterone medications: TOOK HRT FOR ONE YEAR NO LONGER MEDICATIONS: Thyroid Medications: YES Which medication: SYNTHROID How Long: SINCE AGE 23 Additional Medications: BLOOD PRESSURE MEDS, SYNTHROID ,ANTACID, Additional History: EXAM MEASUREMENTS: Bone mineral densitometry was performed using the [employer] System. Bone mineral density as measured about the Lumbar spine is: ----- L1-L4(G/cm2): 1.357 T Score Values are as follows: ----- L2: 1.2 ----- L3: 1.4 ----- L4: 1.2 ----- L1-L4: 1.5 Bone mineral density has: DECREASED -2.9 % since study of: 2015 Bone mineral density about the R hip (g/cm2): 0.745 Bone mineral density about the L hip (g/cm2): 0.677 T Score values are as follows: -----R Neck: -2.1 -----L Neck: -2.6 -----R Total: -1.5 -----L Total: -1.8 Bone mineral density has: DECREASED -5.8 % since study of: 2015 IMPRESSION: Osteopenia about the bilateral femora NOTE: T-SCORE=SD OF THE YOUNG ADULT MEAN.
--- NOTE | 2019-08-04 08:31 | MM ---
Reason for exam: screening (asymptomatic). Last mammogram was performed 1 year ago. History: Patient is postmenopausal. Took estrogen for 1 year. Physical Findings: A clinical breast exam by your physician is recommended on an annual basis and results should be correlated with mammographic findings. MG 3D Screening Mammo W/Cad Bilateral CC and MLO view(s) were taken. Prior study comparison: July 28, 2018, bilateral MG 3d screening mammo w/cad. July 24, 2017, bilateral MG 3d screening mammo w/cad. The breast tissue is heterogeneously dense. This may lower the sensitivity of mammography. No significant changes when compared with prior studies. ASSESSMENT: Benign, BI-RAD 2 RECOMMENDATION: Routine screening mammogram of both breasts in 1 year.
== END | disposition home or self-care (01) ==
LOC: RADMAMWWP 08:46
PROVIDERS: ATTEND Family Medicine
DX: Z12.31 Encounter for screening mammogram for malignant neoplasm of breast (principal); M85.852 Other specified disorders of bone density and structure, left thigh; M85.851 Other specified disorders of bone density and structure, right thigh
CPT/HCPCS: 77063; 77067; 77080

== ENCOUNTER → 2020-08-11 | Outpatient (CLI) | payer MEDICARE ==
--- NOTE | 2020-08-12 08:56 | MM ---
Reason for exam: screening (asymptomatic). Last mammogram was performed 1 year ago. History: Patient is postmenopausal. Took estrogen for 1 year. Physical Findings: A clinical breast exam by your physician is recommended on an annual basis and results should be correlated with mammographic findings. MG 3D Screening Mammo W/Cad Bilateral CC and MLO view(s) were taken. Prior study comparison: July 31, 2019, bilateral MG 3d screening mammo w/cad. July 28, 2018, bilateral MG 3d screening mammo w/cad. The breast tissue is heterogeneously dense. This may lower the sensitivity of mammography. There is no discrete abnormality. ASSESSMENT: Negative, BI-RAD 1 RECOMMENDATION: Routine screening mammogram of both breasts in 1 year.
== END ==
LOC: RADMAMWWP 08:34
PROVIDERS: ATTEND Family Medicine
DX: Z12.31 Encounter for screening mammogram for malignant neoplasm of breast (principal)
CPT/HCPCS: 77063; 77067

== ENCOUNTER → 2020-11-07 | Outpatient (CLI) | payer MEDICARE ==
--- NOTE | 2020-11-07 10:28 | US ---
EXAMINATION TYPE: US duplex aorta DATE OF EXAM: 11/07/2020 COMPARISON: CT 11/02/2019. CLINICAL HISTORY: 75-year-old female I71.4 AAA. Stent put in 2 years ago. TECHNIQUE: Multiple sonographic images of the abdominal aorta are obtained. FINDINGS: EXAM MEASUREMENTS: Abdominal Aorta: Proximal: 1.8 x 1.8 cm Mid: 5.9 x 6.8 cm (the in-lying stent is visualized but not well characterized by ultrasound) Distal: 1.8 cm Bifurcation: not well visualized due to bowel gas. [place] sac caliber was 5.8 x 5.6 cm on the 11/02/2019 CT. IMPRESSION: 1. Aneurysmal [place] sac with prior endovascular stent graft not well characterized on ultrasound. 2. Unable to exclude interval enlargement of the [place] sac. It is measured at 6.8 x 5.9 cm (versus 5 .8 x 5.6 cm on the 11/02/2019 CT). Appropriate follow-up/management recommended.
== END ==
LOC: RADUSWWP 08:29
PROVIDERS: ATTEND Surgery
DX: I71.4 Abdominal aortic aneurysm, without rupture (principal)
CPT/HCPCS: 93979

== ENCOUNTER → 2020-12-12 | Outpatient (CLI) | payer MEDICARE ==
--- NOTE | 2020-12-12 15:47 | CT ---
EXAMINATION TYPE: CT angio abdomen pelvis DATE OF EXAM: 12/12/2020 COMPARISON: 11/02/2019 HISTORY: Follow up on aortic graft. CT DLP: 1377.9 mGycm CONTRAST: CTA thoracic and abdominal aorta with 3-D reconstruction is performed without Oral Contrast and witho ut and with IV Contrast, patient injected with 80ml mL of Isovue 370. Contrast CTA of the abdominal aorta was performed from the lung bases through the base of the pelvis. 3-D reconstruction imaging obtained at a separate workstation. CONTRAST CT ABDOMEN AND PELVIS ABDOMINAL AORTA: Again noted is aortobiiliac endovascular stent graft. There is persistent endoleak n oted on the cranial component of the stent graft. [place] aortic aneurysm measures 6.3 x 6.5 cm versus 5.5 cm AP dimension x 5.5 cm transverse dimension. Iliac vessels are symmetric and patent. LIVER/GB- No significant abnormality is seen. Cholecystectomy clips are in place. PANCREAS- No significant abnormality is seen. SPLEEN- No significant abnormality is seen. ADRENALS- No significant abnormality is seen. KIDNEYS/BLADDER-persistent focal diminished enhancement left kidney with the renal parenchymal thinni ng noted. Right kidney enhances normally. BOWEL- No Significant abnormality GENITAL ORGANS: No gross abnormality seen. LYMPH NODES- No greater than 1cm abdominal or pelvic lymph nodes areappreciated. OSSEOUS STRUCTURES- No significant abnormality is seen. OTHER- No significant abnormality is seen. IMPRESSION- 1. Enlarging infrarenal abdominal aortic aneurysm as noted above with endoleak.
== END | disposition home or self-care (01) ==
LOC: RADCTMAIN 13:34
PROVIDERS: ATTEND Surgery
DX: I71.4 Abdominal aortic aneurysm, without rupture (principal)
CPT/HCPCS: 82565; 84520; 36415; 74174; Q9967

== ENCOUNTER 2021-09-04 22:39 | Emergency (ER) | payer MEDICARE ==
[2021-09-04 23:07] VITALS: RESP 18
[2021-09-05] MEDS ORDERED: predniSONE 20 MG TAB PO STA (00:43)
[2021-09-05] MEDS ORDERED: diphenhydrAMINE 50 MG CAP PO STA (00:43)
[2021-09-05] MEDS ORDERED: FAMOTIDINE 20 MG TAB PO STA (00:43)
[2021-09-05] MEDS ORDERED: ALBUTEROL NEBULIZED 2.5 MG/3 ML INHALATION STA (02:00)
--- NOTE | 2021-09-05 03:02 | ED ---
Allergic Reaction HPI - General Chief complaint: Allergic Reaction Stated complaint: BP all over the place Time Seen by Provider: 09/05/21 00:11 Source: patient Mode of arrival: ambulatory Limitations: no limitations - History of Present Illness MD Complaint: allergic reaction, hives, other -: hour(s) Exposure: other Symptoms: rash, itching Severity: moderate Treatment Prior to Arrival: none Previous Allergy History: other - Related Data Home Medications Medication Instructions Recorded Confirmed Aspirin 81 mg PO HS 09/08/14 06/29/19 Calcium Carbonate/Vitamin D3 1 tab PO DAILY 09/08/14 06/29/19 [Calcium 600-Vit D3 400 Tablet] Levothyroxine Sodium [Synthroid] 100 mcg PO DAILY 09/08/14 06/29/19 Tolterodine Tartrate [Detrol LA] 4 mg PO DAILY 09/08/14 06/29/19 Losartan-Hctz 50-12.5 mg [Hyzaar 1 tab PO DAILY 11/08/17 06/29/19 50-12.5] Metoprolol Tartrate [Lopressor] 25 mg PO DAILY 11/08/17 06/29/19 ALPRAZolam [Xanax] 0.25 mg PO BID PRN 06/29/19 06/29/19 Chlorthalidone [Hygroton] 25 mg PO DAILY 06/29/19 06/29/19 Ezetimibe [Zetia] 5 mg PO DAILY 06/29/19 06/29/19 Ipratropium-Albuterol Nebulize 3 ml INHALATION RT-Q4H PRN 06/29/19 06/29/19 [Duoneb 0.5 mg-3 mg/3 ml Soln] Montelukast [Singulair] 10 mg PO DAILY 06/29/19 06/29/19 Pantoprazole [Protonix] 40 mg PO BID 06/29/19 06/29/19 Previous Rx's Medication Instructions Recorded Albuterol Inhaler [Ventolin Hfa 2 puff INHALATION Q4HR PRN #8 gm 09/05/21 Inhaler] Famotidine [Pepcid] 20 mg PO BID #14 tablet 09/05/21 diphenhydrAMINE [Benadryl] 50 mg PO QID #20 capsule 09/05/21 predniSONE 60 mg PO DAILY #30 tab 09/05/21 Allergies Allergy/AdvReac Type Severity Reaction Status Date / Time Iodinated Contrast Media AdvReac Rapid Verified 09/04/21 23:07 Heart Rate Oprymew-SUJ-AdQ Reductase AdvReac MUSCLE PAIN Verified 09/04/21 23:07 Inhibitor [Huqqoiu-Vrn-Rzn Reductase Inhibitor] Review of Systems ROS Statement: Those systems with pertinent positive or pertinent negative responses have been documented in the HPI. ROS Other: All systems not noted in ROS Statement are negative. Constitutional: Denies: fever, chills ENT: Reports: congestion Respiratory: Reports: cough, dyspnea Cardiovascular: Denies: chest pain, palpitations Gastrointestinal: Denies: abdominal pain, nausea, vomiting, diarrhea Genitourinary: Denies: dysuria, hematuria Skin: Reports: rash. Denies: lesions, change in color Neurological: Denies: headache, weakness Past Medical History Past Medical History: Asthma, Chest Pain / Angina, Eye Disorder, GERD/Reflux, Hyperlipidemia, Hypertension, Thyroid Disorder Additional Past Medical History / Comment(s): CHEST TIGHTNESS, PAST HX OF HYPERLIPIDEMIA, HX OF GLAUCOMA, NOT CURRENTLY USING EYE DROPS History of Any Multi-Drug Resistant Organisms: None Reported Past Surgical History: Cholecystectomy, Heart Catheterization With Stent Additional Past Surgical History / Comment(s): [id number] Past Anesthesia/Blood Transfusion Reactions: No Reported Reaction Additional Past Anesthesia/Blood Transfusion Reaction / Comment(s): no problems with prior blood transfusion Date of Last Stent Placement:: 2010 Past Psychological History: No Psychological Hx Reported Smoking Status: Never smoker Past Alcohol Use History: Occasional Past Drug Use History: None Reported - Past Family History Mother Family Medical History: Cancer General Exam Limitations: no limitations General appearance: alert, in no apparent distress Head exam: Present: atraumatic, normocephalic Eye exam: Present: normal appearance. Absent: scleral icterus, conjunctival injection ENT exam: Present: normal oropharynx Neck exam: Present: normal inspection Respiratory exam: Present: wheezes. Absent: respiratory distress, rales, rhonchi, stridor Cardiovascular Exam: Present: normal rhythm, tachycardia, normal heart sounds. Absent: systolic murmur, diastolic murmur, rubs, gallop GI/Abdominal exam: Present: soft. Absent: distended, tenderness, guarding, rebound, rigid, mass Extremities exam: Present: normal inspection, normal capillary refill Back exam: Present: normal inspection Neurological exam: Present: alert Skin exam: Present: warm, dry, erythema, urticaria Course Vital Signs 09/04/21 09/05/21 09/05/21 23:05 00:55 02:10 Temperature 99.1 F Pulse Rate 127 H 71 70 Respiratory 18 18 Rate Blood Pressure 150/82 153/79 O2 Sat by Pulse 96 98 Oximetry 09/05/21 09/05/21 02:19 03:11 Temperature 98.9 F Pulse Rate 74 78 Respiratory 18 Rate Blood Pressure 155/79 O2 Sat by Pulse 95 Oximetry Medical Decision Making - Medical Decision Making Patient has had improvement in the urticaria and erythema. Doing better. Discussed return parameters and will continue steroids and antihistamines. Disposition Clinical Impression: Allergic reaction Disposition: HOME SELF-CARE Condition: Good Instructions (If sedation given, give patient instructions): General Allergic Reaction (ED) Prescriptions: diphenhydrAMINE [Benadryl] 50 mg PO QID #20 capsule Famotidine [Pepcid] 20 mg PO BID #14 tablet predniSONE 60 mg PO DAILY #30 tab Albuterol Inhaler [Ventolin Hfa Inhaler] 2 puff INHALATION Q4HR PRN #8 gm PRN Reason: Wheezing Is patient prescribed a controlled substance at d/c from ED?: No Referrals: Jennifer Duque MD [Primary Care Provider] - 1-2 days
[2021-09-05 03:20] VITALS: BP 155/79; PULSE 78; TEMP 98.9
== END 2021-09-05 03:11 | disposition home or self-care (01) ==
LOC: EC 22:39
DX: T78.40XA Allergy, unspecified, initial encounter (principal); I10 Essential (primary) hypertension; J45.909 Unspecified asthma, uncomplicated; E78.5 Hyperlipidemia, unspecified; K21.9 Gastro-esophageal reflux disease without esophagitis; Z79.82 Long term (current) use of aspirin; Z79.52 Long term (current) use of systemic steroids; Z79.51 Long term (current) use of inhaled steroids; Z79.890 Hormone replacement therapy; Z79.899 Other long term (current) drug therapy
CPT/HCPCS: 94640; 99283; J7512

== ENCOUNTER → 2021-11-07 | Outpatient (CLI) | payer MEDICARE ==
[2021-11-08 00:10] LABS: African American GFR (CKD) 57.3 (60.0-200.0); Anion Gap 14.2 mmol/L (10.00-18.00); Blood Urea Nitrogen 18.3 mg/dL (9.0-27.0); Carbon Dioxide 25.8 mmol/L (20.0-27.5); Non-African American GFR(CKD) 49.4 (60.0-200.0); Potassium 3.2 mmol/L (3.5-5.5)
[2021-11-08 00:57] LABS: Basophils # (A) 0.03 X 10*3/uL (0.00-0.10); Basophils % (A) 0.4 %; Eosinophils # (A) 0.04 X 10*3/uL (0.04-0.35); Eosinophils % (A) 0.6 %; HCT 43.2 % (37.2-46.3); HGB 13.7 g/dL (12.0-15.0); Immature Grans, Automated 0.3 %; Lymphocytes # (A) 1.78 X 10*3/uL (0.90-5.00); Lymphocytes % (A) 25.2 %; MCH 30.9 pg (27.0-32.0); MCHC 31.7 g/dL (32.0-37.0); MCV 97.5 fL (80.0-97.0); Mean Platelet Volume 11.3 fL (9.5-12.2); Monocytes # (A) 0.54 X 10*3/uL (0.20-1.00); Monocytes % (A) 7.7 %; NRBC Per 100 WBC 0 /100 WBCS (0.0-0.0); Neutrophils # (A) 4.64 X 10*3/uL (1.80-7.70); Neutrophils % (A) 65.8 %; Platelet Count 200 X 10*3/uL (140-440); RBC 4.43 X 10*6/uL (4.10-5.20); RDW 14.3 % (11.5-14.5); WBC 7.05 X 10*3/uL (4.50-10.00)
== END | disposition home or self-care (01) ==
LOC: LABPAT 14:20
PROVIDERS: ATTEND Surgery
DX: Z01.812 Encounter for preprocedural laboratory examination (principal); I71.4 Abdominal aortic aneurysm, without rupture
CPT/HCPCS: 80051; 82565; 84520; 85025

== ENCOUNTER 2021-11-13 08:26 | Day surgery (SDC) | payer MEDICARE ==
[2021-11-10 11:00] VITALS: BMI 34.4
[~2021-11-13 08:26] MED LIST changes: -DEXAMETHASONE SOD PHOSPHATE 10 MG/ML 1 ML VIAL IV ONE; -LACTATED RINGERS 1,000 ML IV SCH; -LIDOCAINE 1% 20 ML VIAL (10MG/ML) FOR IV START INTRADERMA PRN; -MIDAZOLAM 2 MG/2 ML VIAL IV PRN; -ONDANSETRON 4 MG/2 ML VIAL IVP ONE; -ceFAZolin IN SWFI 2 GM/20 ML SYRINGE IVP ONE; -fentaNYL (PF) 50 MCG/ML 2 ML AMP IV PRN
[2021-11-13] MEDS ORDERED: SODIUM CHLORIDE 0.9% 1,000 ML IV ONE ×2 (08:44→10:51)
[2021-11-13] MEDS ORDERED: methylPREDNISolone SOD SUCCI 125 MG/2 ML VIAL ONE (10:03)
[2021-11-13] MEDS ORDERED: diphenhydrAMINE 50 MG/ML 1 ML VIAL ONE (10:03)
[2021-11-13] MEDS ORDERED: LIDOCAINE 1% INJ 10MG/ML (20 ML MDV) ONE (10:07)
[2021-11-13] MEDS ORDERED: VERAPAMIL 2.5 MG/ML 2 ML AMP ONE (10:08)
[2021-11-13] MEDS ORDERED: POTASSIUM CHLORIDE 20 MEQ in WATER FOR INJECTION 1 100ML.BAG IVPB STA (10:12)
[2021-11-13] MEDS ORDERED: ASPIRIN 81 MG ONE (10:14)
[2021-11-13] MEDS ORDERED: fentaNYL (PF) 50 MCG/ML 2 ML AMP ONE (10:21)
[2021-11-13] MEDS ORDERED: MIDAZOLAM 2 MG/2 ML VIAL ONE (10:21)
[2021-11-13] MEDS ORDERED: LIDOCAINE 1% INJ 10MG/ML (20 ML MDV) SQ ONE (10:46)
[2021-11-13] MEDS: VERAPAMIL SYRINGE (5 MG/10 ML) INTRAARTER ONE ×2 (10:50→11:59)
[2021-11-13] MEDS ORDERED: IOPAMIDOL-250 100ML BTL INTRAARTER ONE ×2 (11:58→11:59)
--- NOTE | 2021-11-13 12:13 | P.OP ---
Date of Procedure: 11/13/21 Description of Procedure: Preoperative diagnosis: Enlarging AAA with previous history of endovascular aortic repair possible endoleak Postop diagnosis: Same Procedure: Aortogram with selective celiac, SMA angiograms via ultrasound-guided left radial artery access Surgeon: Zaid Anesthesia: Moderate sedation Estimated blood loss: 5cc Complications: None Condition: Stable Findings: Aorta: Patent graft without any evidence of a type I or type III endoleak. SMA: Patent superior mesenteric artery without any significant areas of stenosis or aneurysmal disease. No evidence of a type II endoleak Celiac: Patent celiac trunk with patent splenic and hepatic artery without evidence of a type II endoleak Operative narrative: After written informed consent was obtained the patient all risks benefits competitions were described the patient is brought to the Sanforizing Machine Operator and laid in a supine position. The area of the left wrist was prepped and draped in the usual sterile fashion. Local anesthesia with moderate sedation was performed with continuous pulse ox monitoring and EKG monitoring. Utilizing ultrasound the left radial artery was visualized and shown to be patent without any significant plaque. Utilizing a multipurpose needle under ultrasound guidance the artery was accessed. Guidewire was placed followed by 5-Tamazight sheath. 035 Glidewire was then placed into the aorta followed by pigtail catheter. Angiogram was then obtained of the aorta. Catheter was then placed at the bifurcation of the graft and angiogram was obtained demonstrating no evidence of a type III endoleak. Pigtail was then removed and utilizing a guidewire celiac artery was accessed with a Vert catheter and selective celiac angiogram was obtained demonstrating no evidence of a type II endoleak. Catheter was then withdrawn and guidewire was placed into the SMA. Selective SMA angiogram was obtained demonstrating multiple vessels extending towards the aneurysm without any evidence of a type II endoleak. 014 wire was then placed and followed by a quick cross catheter and distal selective angiogram was ob tained of the SMA and a straight once again no evidence of a blush or leak. All guidewires and catheters were then removed sheath was removed and pressure was placed with a TR Band. Patient tolerated procedure well was sent to PACU for recovery Plan - Discharge Summary Discharge Rx Participant: No New Discharge Prescriptions: No Action RX: Levothyroxine Sodium [Synthroid] 100 mcg PO DAILY RX: Calcium Carbonate/Vitamin D3 [Calcium 600-Vit D3 400 Tablet] 1 tab PO DAILY RX: Aspirin 81 mg PO HS RX: Metoprolol Tartrate [Lopressor] 25 mg PO DAILY Chlorthalidone [Hygroton] 25 mg PO HS Ipratropium-Albuterol Nebulize [Duoneb 0.5 mg-3 mg/3 ml Soln] 3 ml INHALATION RT-Q4H PRN PRN Reason: Shortness Of Breath Montelukast [Singulair] 10 mg PO DAILY Pantoprazole [Protonix] 40 mg PO BID Famotidine [Pepcid] 20 mg PO BID #14 tablet RX: Albuterol Inhaler [Ventolin Hfa Inhaler] 2 puff INHALATION Q4HR PRN #8 gm PRN Reason: Wheezing Discharge Medication List RX: Aspirin 81 mg PO HS 09/08/14 [History] RX: Calcium Carbonate/Vitamin D3 [Calcium 600-Vit D3 400 Tablet] 1 tab PO DAILY 09/08/14 [History] RX: Levothyroxine Sodium [Synthroid] 100 mcg PO DAILY 09/08/14 [History] RX: Metoprolol Tartrate [Lopressor] 25 mg PO DAILY 11/08/17 [History] Chlorthalidone [Hygroton] 25 mg PO HS 06/29/19 [History] Ipratropium-Albuterol Nebulize [Duoneb 0.5 mg-3 mg/3 ml Soln] 3 ml INHALATION RT-Q4H PRN 06/29/19 [History] Montelukast [Singulair] 10 mg PO DAILY 06/29/19 [History] Pantoprazole [Protonix] 40 mg PO BID 06/29/19 [History] Famotidine [Pepcid] 20 mg PO BID #14 tablet 09/05/21 [Rx] RX: Albuterol Inhaler [Ventolin Hfa Inhaler] 2 puff INHALATION Q4HR PRN #8 gm 09/05/21 [Rx] Follow up Appointment(s)/Referral(s): Sebas Mar DO [STAFF PHYSICIAN] - 1 Week (APPOINTMENT MADE ON November @ 3:15PM )
--- NOTE | 2021-11-13 13:11 | IR ---
EXAMINATION TYPE: IR angio abdominal w serial DATE OF EXAM: 11/13/2021 COMPARISON: NONE HISTORY: Fluoroscopy time. Fluoroscopy was provided to the referring clinician.
[2021-11-13 16:26] VITALS: RESP 16
[2021-11-13 16:34] VITALS: BP 110/64; PULSE 73
== END 2021-11-13 16:11 | disposition home or self-care (01) ==
LOC: CATHCVL 08:26
PROVIDERS: ATTEND Surgery
DX: I71.4 Abdominal aortic aneurysm, without rupture (principal); T82.898A Other specified complication of vascular prosthetic devices, implants and grafts, initial encounter; Z86.16 Personal history of COVID-19; I11.9 Hypertensive heart disease without heart failure; E78.5 Hyperlipidemia, unspecified; K21.9 Gastro-esophageal reflux disease without esophagitis; Z95.5 Presence of coronary angioplasty implant and graft; I73.9 Peripheral vascular disease, unspecified; E07.9 Disorder of thyroid, unspecified; Z95.2 Presence of prosthetic heart valve; Z82.49 Family history of ischemic heart disease and other diseases of the circulatory system; Z79.82 Long term (current) use of aspirin; Z79.890 Hormone replacement therapy; Z79.51 Long term (current) use of inhaled steroids; Z79.899 Other long term (current) drug therapy
CPT/HCPCS: 36246; 36248; 75774; 75726; 84132; C1769 ×3; C1887; C1894; J2250; J1200; J2930; J2001; J3010; Q9966

== ENCOUNTER → 2021-11-16 | Outpatient (CLI) | payer MEDICARE ==
[2021-11-17 00:20] LABS: Chol/HDL Ratio 4.08 Ratio; LDL Cholesterol,Calculated 97.8 mg/dL (0.0-131.0)
[2021-11-17 00:27] LABS: ALT 39 U/L (8-44); AST 46 U/L (13-35); African American GFR (CKD) 48.1 (60.0-200.0); Albumin 3.8 g/dL (3.8-4.9); Albumin/Globulin Ratio 1.55 (1.60-3.17); Alkaline Phosphatase 49 U/L (41-126); BUN/Creat Ratio 17.09 Ratio (12.00-20.00); Blood Urea Nitrogen 21.7 mg/dL (9.0-27.0); Calcium 9.5 mg/dL (8.7-10.3); Carbon Dioxide 23.7 mmol/L (20.0-27.5); Chloride 101 mmol/L (96-109); Globulin 2.5 g/dL (1.6-3.3); Glucose 94 mg/dL (70-110); Non-African American GFR(CKD) 41.5 (60.0-200.0); Potassium 3.2 mmol/L (3.5-5.5); Sodium 140 mmol/L (135-145); Total Protein 6.3 g/dL (6.2-8.2)
== END | disposition home or self-care (01) ==
LOC: LABWHC1 11:16
PROVIDERS: ATTEND Internal Medicine Interventional Cardiology
DX: I48.0 Paroxysmal atrial fibrillation (principal); E78.2 Mixed hyperlipidemia
CPT/HCPCS: 36415; 80053; 80061; 84443

== ENCOUNTER 2021-11-19 15:33 | Emergency (ER) | payer MEDICARE ==
[2021-11-19 15:39] VITALS: PULSE 73; TEMP 98.2
--- NOTE | 2021-11-19 16:19 | ED ---
Upper Extremity HPI - General Chief Complaint: Extremity Injury, Upper Stated Complaint: post op pain Time Seen by Provider: 11/19/21 16:06 Source: patient Mode of arrival: ambulatory Limitations: no limitations - History of Present Illness Initial Comments: This is a pleasant 76-year-old female who presents to the emergency department complaining of discomfort and swelling to her left forearm. Patient had a angiography done from a radial approach on November 13 and subsequently was put on Xarelto by Dr. Nix. Patient states that she was put on for irregular heartbeat. She states other than the form she feels fine. No other complaints. Patient was called by the cardiology office and sent here for imaging. No headache, no fever or chills, no changes in vision or hearing, no sore throat or difficulty with speech, no neck pain, no chest pain or shortness of breath, no abdominal pain, no nausea or vomiting, no changes in urination or bowel movements, no numbness or tingling, no skin rashes or lesions. Pain is exacerbated by palpation and movement to some extend. No joint pain. Does radiate up towards the ulna. Alleviated by rest. Patient has a history of asthma, hypertension, thyroid disorder, cardiac arrhythmia MD Complaint: Injury to:: left, forearm - Related Data Home Medications Medication Instructions Recorded Confirmed Aspirin 81 mg PO HS 09/08/14 11/13/21 Calcium Carbonate/Vitamin D3 1 tab PO DAILY 09/08/14 11/13/21 [Calcium 600-Vit D3 400 Tablet] Levothyroxine Sodium [Synthroid] 100 mcg PO DAILY 09/08/14 11/13/21 Metoprolol Tartrate [Lopressor] 25 mg PO DAILY 11/08/17 11/13/21 Chlorthalidone [Hygroton] 25 mg PO HS 06/29/19 11/13/21 Ipratropium-Albuterol Nebulize 3 ml INHALATION RT-Q4H PRN 06/29/19 11/13/21 [Duoneb 0.5 mg-3 mg/3 ml Soln] Montelukast [Singulair] 10 mg PO DAILY 06/29/19 11/13/21 Pantoprazole [Protonix] 40 mg PO BID 06/29/19 11/13/21 Previous Rx's Medication Instructions Recorded Albuterol Inhaler [Ventolin Hfa 2 puff INHALATION Q4HR PRN #8 gm 12/28/21 Inhaler] Famotidine [Pepcid] 20 mg PO BID #14 tablet 09/05/21 Potassium Chloride ER [K-Dur 10] 10 meq PO DAILY #10 tab 11/19/21 Allergies Allergy/AdvReac Type Severity Reaction Status Date / Time Iodinated Contrast Media Allergy Rapid Verified 11/13/21 08:53 Heart Rate Ydtvoox-KCW-ZwY Reductase Allergy MUSCLE PAIN Verified 11/13/21 08:53 Inhibitor [Ldxsbfa-Wjq-Oye Reductase Inhibitor] Review of Systems ROS Statement: Those systems with pertinent positive or pertinent negative responses have been documented in the HPI. ROS Other: All systems not noted in ROS Statement are negative. Past Medical History Past Medical History: Asthma, Chest Pain / Angina, Eye Disorder, GERD/Reflux, Hypertension, Thyroid Disorder Additional Past Medical History / Comment(s): HX OF GLAUCOMA-NO LONGER A PROBLEM. AAA History of Any Multi-Drug Resistant Organisms: None Reported Past Surgical History: Cholecystectomy, Heart Catheterization With Stent Additional Past Surgical History / Comment(s): AAA REPAIR Past Anesthesia/Blood Transfusion Reactions: No Reported Reaction Additional Past Anesthesia/Blood Transfusion Reaction / Comment(s): no problems with prior blood transfusion Date of Last Stent Placement:: 2010 Past Psychological History: No Psychological Hx Reported Smoking Status: Never smoker Past Alcohol Use History: Occasional Past Drug Use History: None Reported - Past Family History Mother Family Medical History: Cancer General Exam Limitations: no limitations General appearance: alert, in no apparent distress Head exam: Present: atraumatic, normocephalic, normal inspection Eye exam: Present: normal appearance, PERRL, EOMI. Absent: scleral icterus, con junctival injection, periorbital swelling ENT exam: Present: normal exam, mucous membranes moist Neck exam: Present: normal inspection. Absent: tenderness, meningismus, lymphadenopathy Respiratory exam: Present: normal lung sounds bilaterally. Absent: respiratory distress, wheezes, rales, rhonchi, stridor Cardiovascular Exam: Present: regular rate, normal rhythm, normal heart sounds. Absent: systolic murmur, diastolic murmur, rubs, gallop, clicks GI/Abdominal exam: Present: soft, normal bowel sounds. Absent: distended, tenderness, guarding, rebound, rigid Extremities exam: Present: full ROM, tenderness, normal capillary refill, other (Patient has edema and ecchymosis noted to the left forearm. No erythema. No break in skin integrity. Healing radial puncture site noted. Full range of motion of all joints. Capillary refill less than 2 seconds. Radial pulses palpable.). Absent: pedal edema, joint swelling, calf tenderness Back exam: Present: normal inspection Neurological exam: Present: alert, oriented X3, CN II-XII intact Psychiatric exam: Present: normal affect, normal mood Skin exam: Present: warm, dry, intact, normal color. Absent: rash Course Vital Signs 11/19/21 15:36 Temperature 98.2 F Pulse Rate 73 Respiratory 18 Rate Blood Pressure 143/89 O2 Sat by Pulse 98 Oximetry Medical Decision Making - Medical Decision Making She presents with left forearm pain and edema after having an angiogram done on November 13. We'll order imaging for pseudoaneurysm. We'll also obtain a venous Doppler due to the edema. However this is unlikely as the patient is on anticoagulation. The case was discussed in detail with ED attending physician. Presentation, findings, treatment plan discussed in detail. Venous Doppler shows no evidence of DVT. He arterial study for pseudoaneurysm shows no evidence of pseudoaneurysm. Discussed with ED attending physician. I did discuss the case with on-call vascular surgeon who states it's okay for the patient to follow-up in the office. I did perform Doppler pulses myself in the room. There was little to no flow through the radial artery as confirmed on the arterial ultrasound study. However the patient had good collateral flow through the ulnar artery. Capillary refill less than 2 seconds. Kevin's test revealed good flow. Patient was told to return to the ER for any signs or symptoms worsen. Told to return immediately if any other problems arise. All questions answered. Treatment plan discussed. Patient in agreement Every effort has been made to ensure accuracy of this dictation. However, due to the limitations of electronic medical records and dictation devices, errors in charting still occur. - Lab Data Result diagrams: 11/19/21 16:39 11/19/21 16:39 Lab Results 11/19/21 11/19/21 Range/Units 16:39 16:39 WBC 7.9 (3.8-10.6) k/uL RBC 4.43 (3.80-5.40) m/uL Hgb 14.2 (11.4-16.0) gm/dL Hct 43.5 (34.0-46.0) % MCV 98.2 (80.0-100.0) fL MCH 32.1 (25.0-35.0) pg MCHC 32.7 (31.0-37.0) g/dL RDW 14.2 (11.5-15.5) % Plt Count 263 (150-450) k/uL MPV 7.9 Neutrophils % 62 % Lymphocytes % 24 % Monocytes % 8 % Eosinophils % 1 % Basophils % 1 % Neutrophils # 4.9 (1.3-7.7) k/uL Lymphocytes # 1.9 (1.0-4.8) k/uL Monocytes # 0.7 (0-1.0) k/uL Eosinophils # 0.1 (0-0.7) k/uL Basophils # 0.1 (0-0.2) k/uL Sodium 139 (137-145) mmol/L Potassium 2.9 L (3.5-5.1) mmol/L Chloride 102 (98-107) mmol/L Carbon Dioxide 27 (22-30) mmol/L Anion Gap 10 mmol/L BUN 20 H (7-17) mg/dL Creatinine 1.02 (0.52-1.04) mg/dL Est GFR (CKD-EPI)AfAm 63 (>60 ml/min/1.73 sqM) Est GFR (CKD-EPI)NonAf 55 (>60 ml/min/1.73 sqM) Glucose 90 (74-99) mg/dL Calcium 9.5 (8.4-10.2) mg/dL Disposition Clinical Impression: Edema of left forearm, Hypokalemia Disposition: HOME SELF-CARE Condition: Good Instructions (If sedation given, give patient instructions): Hematoma (ED), Hypokalemia (ED) Additional Instructions: Follow-up with your regular physician as directed. Return to the ER immediately if any symptoms worsen, new symptoms arise, or any other problems develop. Follow-up with the vascular surgeon as planned. Elevate your arm as much as possible. Apply warm compresses for 10 minutes a time 4 times daily. Touch base with your entrance guard regarding hypokalemia/low potassium Prescriptions: Potassium Chloride ER [K-Dur 10] 10 meq PO DAILY #10 tab Is patient prescribed a controlled substance at d/c from ED?: No Referrals: Fercho Baez MD [Primary Care Provider] - 1-2 days Sebas Mar DO [STAFF PHYSICIAN] - 11/21/21 Isaiah Nix MD [STAFF PHYSICIAN] - 11/21/21 Time of Disposition: 18:20
[2021-11-19 17:09] LABS: Basophils # (A) 0.1 k/uL (0-0.2); Basophils % (A) 1 %; Eosinophils # (A) 0.1 k/uL (0-0.7); Eosinophils % (A) 1 %; HCT 43.5 % (34.0-46.0); HGB 14.2 gm/dL (11.4-16.0); Lymphocytes # (A) 1.9 k/uL (1.0-4.8); Lymphocytes % (A) 24 %; MCH 32.1 pg (25.0-35.0); MCHC 32.7 g/dL (31.0-37.0); MCV 98.2 fL (80.0-100.0); Mean Platelet Volume 7.9; Monocytes # (A) 0.7 k/uL (0-1.0); Monocytes % (A) 8 %; Neutrophils # (A) 4.9 k/uL (1.3-7.7); Neutrophils % (A) 62 %; Platelet Count 263 k/uL (150-450); RBC 4.43 m/uL (3.80-5.40); RDW 14.2 % (11.5-15.5); WBC 7.9 k/uL (3.8-10.6)
[2021-11-19 17:18] LABS: Calcium 9.5 mg/dL (8.4-10.2); Potassium 2.9 mmol/L (3.5-5.1)
[2021-11-19] MEDS ORDERED: POTASSIUM CHLORIDE ER 20 MEQ TAB.ER PO STA (17:53)
--- NOTE | 2021-11-19 17:58 | US ---
EXAMINATION TYPE: US venous doppler duplex UE LT DATE OF EXAM: 11/19/2021 COMPARISON: NONE CLINICAL HISTORY: Left forearm pain/edema. left lower arm pain and edema. bruising left wrist. status post left radial angiogram 11/13/21 SIDE PERFORMED: left Left Arm: no evidence of DVT IMPRESSION: No evidence of deep vein thrombosis in the left arm.
--- NOTE | 2021-11-19 18:00 | US ---
EXAMINATION TYPE: US upper ext pseudo LT DATE OF EXAM: 11/19/2021 COMPARISON: NONE CLINICAL HISTORY: Left forearm pain. left lower arm pain and edema. bruising left wrist. status post left radial angiogram no evidence of pseudoaneurysm at this time. little to no flow visualized within left radial artery IMPRESSION: No evidence of pseudoaneurysm. There is very little flow seen in the radial artery that s uggests significant stenosis.
[2021-11-19 18:59] VITALS: BP 140/83; RESP 16
== END 2021-11-19 19:06 | disposition home or self-care (01) ==
LOC: EC 15:33
DX: R60.0 Localized edema (principal); E87.6 Hypokalemia; Z79.82 Long term (current) use of aspirin; J45.909 Unspecified asthma, uncomplicated; K21.9 Gastro-esophageal reflux disease without esophagitis; I10 Essential (primary) hypertension; E07.9 Disorder of thyroid, unspecified; Z90.49 Acquired absence of other specified parts of digestive tract
CPT/HCPCS: 36415; 80048; 85025; 99284

== ENCOUNTER 2021-12-19 06:05 | Day surgery (SDC) | payer MEDICARE ==
[2021-12-15 14:17] VITALS: BMI 34.2
[~2021-12-19 06:05] MED LIST changes: +LACTATED RINGERS 1,000 ML IV SCH; +SODIUM CHLORIDE 0.9% 1,000 ML IV SCH; -SODIUM CHLORIDE 0.9% 1,000 ML in EMPTY BAG 1 BAG IV ONE
[2021-12-19] MEDS ORDERED: SODIUM CHLORIDE 0.9% 500 ML 500 ML IV ONE (06:23)
[2021-12-19 07:06] LABS: Calcium 9.8 mg/dL (8.4-10.2); Potassium 3.8 mmol/L (3.5-5.1)
[2021-12-19] MEDS ORDERED: PROPOFOL 10 MG/ML 20 ML VIAL IV ONE (07:15)
[2021-12-19] MEDS ORDERED: SYMBICORT 160-4.5 MCG INHALER INHALATION PRN (07:30)
[2021-12-19] MEDS ORDERED: ALBUTEROL NEBULIZED 2.5 MG/3 ML INHALATION PRN (07:30)
[2021-12-19] MEDS ORDERED: SODIUM CHLORIDE 0.9% 1,000 ML IV SCH (07:30)
--- NOTE | 2021-12-19 07:35 | P.PCN ---
Description of Procedure: Indication: Atrial fibrillation Procedure Description: After explaining the procedure to the patient, it's risk and complications, blo od pressure, heart rate and O2 saturation were monitored. The throat was sprayed with Cetacaine. Patient received sedation per anesthesia department. The probe was introduced into the esophagus without difficulty. Images were obtained. Following that, the probe was removed. There was no immediate complication. Findings: Left atrial size is mildly dilated, left atrial appendage is normal. Left v entricle size is normal, ejection fraction 50-55%. The aortic valve revealed fibrocalcific changes of the white cusps with preserved opening, mitral anulus calcification was noted. The tricuspid valve appears to be normal. Descending thoracic aorta revealed mild atherosclerotic changes. No pericardial effusion was noted. Contrast bubble study revealed no shunting across the intra-atrial septum. Doppler: Pulse wave and color Doppler were obtained and revealed mild mitral, tricuspid and aortic regurgitation. There is no shunting across the intra-atrial septum Conclusion: 1. Mildly dilated left atrium with normal appearance of the left atrial appendage 2. The ventricle systolic function is borderline normal 3. Mild mitral, aortic and tricuspid regurgitation 4. No shunting across the intra-atrial septum 5. Mild atherosclerotic changes of the descending thoracic aorta
--- NOTE | 2021-12-19 07:36 | P.PCN ---
Date of Procedure: 12/19/21 Description of Procedure: Cardioversion: After explaining the procedure to the patient, risks and complications. Her blood pressure, heart rate and O2 saturation were monitored. Sedation was obtained per anesthesia department, after obtaining transesophageal echocardiogram and synchronized biphasic cardioversion using 120 J was successful in restoring sinus mechanism. There was no immediate complications.
[2021-12-19 07:42] VITALS: RESP 16; TEMP 98
[2021-12-19 08:43] VITALS: BP 136/76; PULSE 65
[2021-12-19] MEDS ORDERED: LEVOTHYROXINE 100 MCG TAB PO SCH (09:00)
[2021-12-19] MEDS ORDERED: PANTOPRAZOLE 40 MG TABLET PO SCH (09:00)
[2021-12-19] MEDS ORDERED: MONTELUKAST 10 MG TAB PO SCH (09:00)
[2021-12-19] MEDS ORDERED: POTASSIUM CHLORIDE ER 10 MEQ TAB.ER.PRT PO SCH (09:00)
[2021-12-19] MEDS ORDERED: CHLORTHALIDONE 25 MG TAB PO SCH (09:00)
[2021-12-19] MEDS ORDERED: FAMOTIDINE 20 MG TAB PO SCH (09:00)
[2021-12-19] MEDS ORDERED: METOPROLOL SUCCINATE (ER) 25 MG TAB.ER.24H PO SCH (09:00)
[2021-12-19] MEDS ORDERED: RIVAROXABAN 20 MG TAB PO SCH (09:00)
[2021-12-19] MEDS ORDERED: ASPIRIN 81 MG PO SCH (21:00)
== END 2021-12-19 08:56 | disposition home or self-care (01) ==
LOC: CATHCVL 06:05
PROVIDERS: ATTEND Internal Medicine Interventional Cardiology
DX: I48.91 Unspecified atrial fibrillation (principal); I08.3 Combined rheumatic disorders of mitral, aortic and tricuspid valves; I70.90 Unspecified atherosclerosis; I25.10 Atherosclerotic heart disease of native coronary artery without angina pectoris; I10 Essential (primary) hypertension; F17.200 Nicotine dependence, unspecified, uncomplicated; I49.9 Cardiac arrhythmia, unspecified; E07.9 Disorder of thyroid, unspecified; K21.9 Gastro-esophageal reflux disease without esophagitis; Z79.899 Other long term (current) drug therapy; Z79.82 Long term (current) use of aspirin; Z79.01 Long term (current) use of anticoagulants; Z20.822 Contact with and (suspected) exposure to COVID-19
CPT/HCPCS: 93312; 93320; 93325; 92960; 80048; 87635; J2704

== ENCOUNTER → 2022-06-27 | Outpatient (CLI) | payer MEDICARE ==
--- NOTE | 2022-06-27 11:00 | CT ---
EXAMINATION TYPE: CT angio abdomen pelvis DATE OF EXAM: 06/27/2022 COMPARISON: 12/12/2020 HISTORY: 76-year-old female I71.40, Abdominal aortic aneurysm TECHNIQUE: Contiguous axial scanning of the abdomen and pelvis before and after administration of 100 ml Isovue-370 IV contrast. Additional delayed scanning through the patient's abdominal aortic stent graft. Coronal/sagittal MIP reconstructions performed. 3-D reconstructions generated on a dedicated independent workstation. CT DLP: 1153.4 mGycm Automated exposure control for dose reduction was used. FINDINGS: The heart is mildly enlarged without pericardial effusion. Underlying mild emphysema within the visua lized lower lungs demonstrate areas of atelectasis or scarring. 5 mm peripheral left basilar pulmonary nodule suspected to have been subtly present on the prior exam as well. No pleural effusion. A couple scattered right hepatic hypodensities measuring up to 5 mm were present previously, likely t iny cysts in calcified granuloma lateral right liver lobe. Portal venous system is patent. No biliary ductal dilatation. Cholecystectomy clips. Adrenal glands and pancreas within normal limits. Some cortical thinning suggested and both kidneys c ould reflect chronic medical renal disease. There is a 1 cm cortical cyst lateral mid left kidney, un changed. Some calcification or surgical material along the lateral right upper pole remains unchanged . 1 cm hypodensity lateral aspect of the spleen is unchanged, possible cyst. A couple calcified granulo mas are noted within the venous wall. There is an aortobiiliac endovascular stent graft extending from the level of the celiac axis to the iliac artery bifurcations. There is a focal fusiform aneurysm spanning 7.1 cm of the mid to distal abdominal aorta extending to the aortic bifurcation. This has a caliber up to 7.6 x 6.9 cm versus 6.9 x 6.3 cm on 12/12/2020. The patient's fusiform aneurysm appears to begin at the level of the radial lucent segment of the henok nt graft, prior to the iliac vessel arms. Arterial phase imaging shows IV contrast extending into the [place] sac at this level raising concern for a persistent type III endoleak. However, on delayed scan, more numerous areas of IV contrast are seen within the proximal and midport ion of the [place] sac. There may be concurrent type II endoleaks persisting compared to 12/12/2020. No dilated small bowel, free fluid, or free air. No mesenteric or retroperitoneal lymphadenopathy. Mild to moderate stool burden. No pericolonic inflammatory change. Bladder is partially distended. Uterus somewhat elongated and anteverted draping the dome of the blad triny. Pelvic phleboliths. Neither ovary clearly seen. No abnormal fluid collection in the pelvis or pe lvic lymphadenopathy. Bones: Hypertrophic facet arthropathy throughout. 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 Grade 1 retrolist hesis T12-L1 and L1-L2. Grade 1 anterolisthesis L3-L4 and L4-L5. Baastrup's disease. IMPRESSION: 1. AORTOBIILIAC ENDOVASCULAR STENT GRAFT REDEMONSTRATED. THERE IS A 7.1 CM LONG, LARGE OSAGE SAC OF THE MID TO DISTAL ABDOMINAL AORTA WHICH SHOWS FURTHER INCREASE IN SIZE (CURRENTLY 7.6 X 6.9 CM VERSUS 6.9 X 6.3 CM ON 12/12/2020). 2. 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
== END | disposition home or self-care (01) ==
LOC: RADCTMAIN 08:22
PROVIDERS: ATTEND Surgery
DX: I71.40 Abdominal aortic aneurysm, without rupture, unspecified (principal); Z95.828 Presence of other vascular implants and grafts
CPT/HCPCS: 82565; 84520; 36415; 74174; Q9967

== ENCOUNTER → 2022-07-26 | Outpatient (CLI) | payer OTHER ==
--- NOTE | 2022-07-26 16:00 | XR ---
EXAMINATION TYPE: XR wrist complete 4 views RT, XR foot complete 3 views LT, XR ankle complete 3 view s LT DATE OF EXAM: 07/26/2022 COMPARISON: NONE HISTORY: 77-year-old female pain after fall. S63.501A S93.402A S93.602A FINDINGS: Right wrist: Mild to moderate degenerative change first CMC and triscaphe joints. There is prominent positive ulna r variance. Radiocarpal and distal radial ulnar joint as well as the midcarpal compartment appear int act. Somewhat widened appearance at the distal radial ulnar joint on the navicular view. Left ankle: Ankle mortise is congruent with preservation of the distal tibiofibular overlap. Talar dome is intact . Marked dorsal hindfoot soft tissue swelling. Ossific density measuring 6 mm on the dorsal aspect of the talar head. Mild thickening of the Achilles insertion. Underlying tibiotalar joint effusion. Mod erate plantar heel spur. Left foot: Marked dorsal hindfoot and ankle soft tissue swelling. Mild hallux valgus deformity with bunion. Bipa rtite tibial sesamoid. Irregularity along the dorsal aspect of the talar head. Midfoot alignment is m aintained. IMPRESSION: 1. Right wrist: Prominent positive ulnar variance. Questionable widened appearance at the distal radi al ulnar joint on the navicular view. Correlate for any focal pain at the distal radioulnar joint wit h a pronation and supination maneuvers to exclude a joint sprain. 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 2. Left ankle and foot: Marked dorsal hindfoot and ankle soft tissue swelling. Suspect a nondisplaced 6 mm capsular avulsion fracture from the dorsal talar head. 3. Underlying tibiotalar joint effusion.
== END | disposition home or self-care (01) ==
LOC: RADXRMAIN 15:14
PROVIDERS: ATTEND Emergency Medicine
DX: S63.501A Unspecified sprain of right wrist, initial encounter (principal); S93.402A Sprain of unspecified ligament of left ankle, initial encounter; S93.602A Unspecified sprain of left foot, initial encounter; M79.89 Other specified soft tissue disorders; M18.12 Unilateral primary osteoarthritis of first carpometacarpal joint, left hand

== ENCOUNTER → 2023-05-27 | Outpatient (CLI) | payer MEDICARE ==
[2023-05-27 17:43] LABS: African American GFR (CKD) 65 (>60 ml/min/1.73 sqM); Blood Urea Nitrogen 30 mg/dL (7-17); Non-African American GFR(CKD) 57 (>60 ml/min/1.73 sqM)
--- NOTE | 2023-05-28 08:32 | CT ---
EXAMINATION TYPE: CT chest w con DATE OF EXAM: 05/27/2023 COMPARISON: X-ray 05/21/2023 HISTORY: abnormal cxr CT DLP: 331.1 mGycm Automated exposure control for dose reduction was used. TECHNIQUE: CT scan of the chest is performed with IV Contrast, patient injected with 80cc mL of Isovue 300. MIP Images are created on CT scanner and reviewed. 3D reconstructed images are created on an independent workstation and reviewed. FINDINGS: LUNGS: Bilateral patchy areas of multifocal infiltrate. No pleural effusion or pneumothorax. 4 mm nod ule left lower lobe laterally. MEDIASTINUM: There are no greater than 1 cm hilar or mediastinal lymph nodes. The heart is enlarged. Coronary artery calcification noted.. Ascending aorta measures 3.9 cm mild atherosclerotic changes. OTHER: Stable nonspecific splenic lesion. Postcholecystectomy changes noted. Cortical loss noted. Pa ncreatic calcifications are seen. There is a hiatal hernia. Hypertrophic and degenerative changes spi ne. There is a splenic calcifications. Hepatic calcifications also noted. Stable. Aortic stent graft noted partially included in the [id number]. IMPRESSION: 1. There are patchy bilateral areas of multifocal infiltrate greater peripheral. Favor inflammatory o r infectious etiology. 2. Cardiomegaly with coronary artery calcification. 3. Aortic ectasia measuring 3.9 cm. 4. There is a 4 mm left lower lobe pulmonary nodule. Recommend 6-12 month follow-up.
== END | disposition home or self-care (01) ==
LOC: RADCTMAIN 17:03
PROVIDERS: ATTEND Internal Medicine
DX: I25.10 Atherosclerotic heart disease of native coronary artery without angina pectoris (principal); I51.7 Cardiomegaly; I77.819 Aortic ectasia, unspecified site; R91.1 Solitary pulmonary nodule; R91.8 Other nonspecific abnormal finding of lung field
CPT/HCPCS: 82565; 84520; 71260; 36415; Q9967

== ENCOUNTER → 2023-11-06 | Outpatient (CLI) | payer MEDICARE ==
--- NOTE | 2023-11-06 14:07 | MM ---
Reason for Exam: Additional evaluation requested from prior study. Last screening mammogram was performed 12 month(s) ago. Patient History: Menarche at age 15. First Full-Term at age 21. Postmenopausal. Patient used Estrogen for 1 year. Risk Values: Umm 5 year model risk: 1.3%. NCI Lifetime model risk: 2.6%. Prior Study Comparison: 07/24/2017 Bilateral Screening Mammogram, [facility]. 07/28/2018 Bilateral Screening Mammogram, [facility]. 07/31/2019 Bilateral Screening Mammogram, [facility]. 08/11/2020 Bilateral Screening Mammogram, [facility]. 10/24/2021 Bilateral Screening Mammogram, [facility]. 11/05/2022 Bilateral MG 3D screening mammo w/cad, [facility]. Tissue Density: The breast tissue is heterogeneously dense. This may lower the sensitivity of mammography. Findings: Analyzed By CAD. The pattern is symmetrical. Benign stable appearing nodule is in the posterior lateral right craniocaudal projection. No suspicious groups of microcalcifications, spiculated or lobular masses, architectural distortion or other secondary signs of malignancy are mammographically apparent. A few scattered benign punctate calcifications are present. Overall Assessment: Benign, BI-RAD 2 Management: Screening Mammogram of both breasts in 1 year. A negative mammogram report should not preclude additional follow up of suspicious palpable abnormalities. Patient should continue monthly self breast exam. A clinical breast exam by your physician is recommended on an annual basis and results should be correlated with mammographic findings. Electronically signed and approved by: Eliezer Johnson D.O. Radiologis
== END | disposition home or self-care (01) ==
LOC: RADMAMWWP 12:21
PROVIDERS: ATTEND Family Medicine
DX: R92.0 Mammographic microcalcification found on diagnostic imaging of breast (principal); R92.333 Mammographic heterogeneous density, bilateral breasts; Z78.0 Asymptomatic menopausal state
CPT/HCPCS: 77062; 77066

== ENCOUNTER → 2024-05-14 | Outpatient (CLI) | payer MEDICARE ==
[2024-05-14 18:37] LABS: Blood Urea Nitrogen 19.6 mg/dL (9.0-27.0); Chol/HDL Ratio 3.91 Ratio; Glucose 100 mg/dL (70-110); LDL Cholesterol,Calculated 102.2 mg/dL (0.0-131.0)
[2024-05-14 18:38] LABS: ALT 37 U/L (8-44); AST 46 U/L (13-35); Albumin 4.2 g/dL (3.8-4.9); Albumin/Globulin Ratio 1.75 Ratio (1.60-3.17); Alkaline Phosphatase 62 U/L (41-126); Carbon Dioxide 24.5 mmol/L (21.6-31.8); Chloride 103 mmol/L (96-109); Globulin 2.4 g/dL (1.6-3.3); Potassium 3.8 mmol/L (3.5-5.5); Sodium 140 mmol/L (135-145); Total Bilirubin 0.7 mg/dL (0.3-1.2); Total Protein 6.6 g/dL (6.2-8.2)
== END | disposition home or self-care (01) ==
LOC: LABWHC1 11:38
PROVIDERS: ATTEND Internal Medicine Interventional Cardiology
DX: E78.2 Mixed hyperlipidemia (principal)
CPT/HCPCS: 36415; 80053; 80061

== ENCOUNTER → 2024-09-18 | Outpatient (CLI) | payer MEDICARE ==
[2024-09-18 15:26] LABS: African American GFR (CKD) 72 (>60 ml/min/1.73 sqM); Blood Urea Nitrogen 22 mg/dL (7-17); Non-African American GFR(CKD) 62 (>60 ml/min/1.73 sqM)
--- NOTE | 2024-09-18 16:48 | CT ---
EXAMINATION TYPE: CT angio abdomen pelvis CT DLP: 1170.5 mGycm, Automated exposure control for dose reduction was used. 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 TECHNIQUE: Multiple thin slice sub-millimeter images were obtained through the abdomen and pelvis bef ore and after administration of contrast. Patient was given Isovue 370, 100 cc intravenously. 3-D r econstructed images and maximum intensity projection images were obtained of the abdominal aorta and its branches. FINDINGS: CTA Abdomen and pelvis: Postsurgical changes from aortobiiliac stent graft redemonstrated. This exten ds from the celiac axis to the iliac artery bifurcations. The excluded infrarenal abdominal aortic na tive aneurysm sac measures up to 8.4 x 7.7 cm (series 8, image 20). Previously measured up to 7.6 x 6 .9 cm. No evidence for intramural hematoma or dissection. There is again intravenous contrast extendi ng into the [place] sac at the level of the lucent segment of the stent at the level of the beginning [place] aneurysm (series 8, image 67). 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 On delay scan however there are numerous areas of IV contrast seen within the proximal portion of the na tive aneurysm sac. There again may be concurrent type II endoleak persisting. Atherosclerotic calcifi cation of the aorta and its branches. The origins of the superior mesenteric artery, renal arteries, and celiac axis are patent. There is moderate stenosis at the origin of the celiac axis secondary to noncalcified plaque. Poststenotic dilatation measuring up to 8 mm. The origin of the SMA is widely pa tent. Nonvisualization of the XI. Atherosclerotic plaquing with some mural thrombus formation is jhonathan ntified in the common iliac arteries. VISCERA: The liver, spleen, adrenal glands, kidneys, pancreas, and gallbladder are not optimally enha nced due the arterial phase utilized. LIVER: Couple of stable calcified granulomas. Couple of stable subcentimeter hypodense foci which lik noreen represent cysts. GALLBLADDER AND BILE DUCTS: Gallbladder surgically absent. No biliary ductal dilatation. PANCREAS: Unremarkable. SPLEEN: Couple of calcified granulomas. Unchanged 1 cm hypodensity cyst within the spleen. ADRENAL GLANDS: Unremarkable. KIDNEYS AND URETERS: No evidence of hydronephrosis. No obstructive calculi. Cortical thinning involvi ng the left renal kidney which may reflect a component of medical renal disease. The kidneys enhance symmetrically. Unchanged calcification or surgical material along the lateral right upper pole. PELVIS BLADDER: Incompletely distended but grossly unremarkable. REPRODUCTIVE: Uterus again demonstrates a somewhat elongated anteverted draping along the dome of the urinary bladder. Surrounding pelvic phleboliths. ABDOMEN & PELVIS STOMACH AND BOWEL: Small hiatal hernia.No focal wall thickening or surrounding inflammatory changes. No evidence of bowel obstruction. PERITONEUM: No evidence of pneumoperitoneum or free fluid. MUSCULOSKELETAL: No acute osseous abnormalities. Grade 1 anterolisthesis of L4 on L5. Multilevel dege nerative disc disease and facet arthropathy. 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 LYMPH NODES: No evidence for lymphadenopathy. SOFT TISSUE/ABDOMINAL WALL: Unremarkable LOWER CHEST: Regions of atelectasis and/or scarring within the bilateral lower lungs. Stable left low er lobe 4 mm pulmonary nodule. Consider benign due to stability. Cardiomegaly. Coronary artery calcif ications. IMPRESSION: Aortobiiliac endovascular stent graft redemonstrated . There is increase in size of excluded [place] a neurysm sac now measuring up to 8.4 cm, previously 7.1 cm. 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 [facility], , 09/18/2024 4:46 PM
== END | disposition home or self-care (01) ==
LOC: RADCTMAIN 14:20
PROVIDERS: ATTEND Surgery
DX: I71.40 Abdominal aortic aneurysm, without rupture, unspecified (principal); Z95.828 Presence of other vascular implants and grafts
CPT/HCPCS: 82565; 84520; 36415; 74174; Q9967

== ENCOUNTER → 2024-11-30 | Outpatient (CLI) | payer MEDICARE ==
--- NOTE | 2024-11-30 11:32 | MM ---
Reason for Exam: Screening (asymptomatic). Last mammogram was performed 1 year(s) and 1 month(s) ago. Patient History: Menarche at age 15. First Full-Term at age 21. Postmenopausal. Patient used Estrogen for 1 year. Risk Values: Umm 5 year model risk: 1.3%. NCI Lifetime model risk: 2.4%. Prior Study Comparison: 10/24/2021 Bilateral Screening Mammogram, [facility]. 11/05/2022 Bilateral MG 3D screening mammo w/cad, [facility]. 11/06/2023 Bilateral MG 3D diag mammo w/cad [place], [facility]. Tissue Density: The breasts are heterogeneously dense, which may obscure small masses. Findings: Analyzed By CAD. There is no suspicious group of microcalcifications or new suspicious mass in either breast. Benign-appearing calcifications. Stable appearing lymph nodes in the axilla. Overall Assessment: Benign, BI-RAD 2 Management: Screening Mammogram of both breasts in 1 year. . Patient should continue monthly self-breast exams. A clinical breast exam by your physician is recommended on an annual basis. This exam should not preclude additional follow-up of suspicious palpable abnormalities. Note on Umm scores and lifetime risk: 1. A Umm score greater than 3% is considered moderate risk. If this is the case, consider specialist referral to assess eligibility for a risk reducing agent. 2. If overall lifetime risk for the development of breast cancer is 20% or higher, the patient may qualify for future screening with alternating mammogram and breast MRI. [facility], , 11/30/2024 11:12 AM. Electronically signed and approved by: Fercho Zapata M.D. Radiologis
== END | disposition home or self-care (01) ==
LOC: RADMAMWWP 10:30
PROVIDERS: ATTEND Family Medicine
DX: Z12.31 Encounter for screening mammogram for malignant neoplasm of breast (principal); R92.333 Mammographic heterogeneous density, bilateral breasts; R92.1 Mammographic calcification found on diagnostic imaging of breast; Z78.0 Asymptomatic menopausal state
CPT/HCPCS: 77063; 77067

== ENCOUNTER → 2024-11-30 | Outpatient (CLI) | payer MEDICARE ==
[2024-11-30 15:36] LABS: ALT 54 U/L (8-44); AST 48 U/L (13-35); Albumin 3.7 g/dL (3.8-4.9); Albumin/Globulin Ratio 1.54 Ratio (1.60-3.17); Alkaline Phosphatase 44 U/L (41-126); BUN/Creat Ratio 24.45 Ratio (12.00-20.00); Blood Urea Nitrogen 26.9 mg/dL (9.0-27.0); Calcium 10.1 mg/dL (8.7-10.3); Carbon Dioxide 25.8 mmol/L (21.6-31.8); Chloride 104 mmol/L (96-109); Globulin 2.4 g/dL (1.6-3.3); Glucose 94 mg/dL (70-110); LDL Cholesterol,Calculated 83.8 mg/dL (0.0-131.0); Potassium 3.8 mmol/L (3.5-5.5); Sodium 141 mmol/L (135-145); Total Bilirubin 0.8 mg/dL (0.3-1.2); Total Protein 6.1 g/dL (6.2-8.2)
== END | disposition home or self-care (01) ==
LOC: LABWHC1 10:37
PROVIDERS: ATTEND Internal Medicine Interventional Cardiology
DX: E78.2 Mixed hyperlipidemia (principal)
CPT/HCPCS: 36415; 80053; 80061